=== PATIENT | female | born 1975 | race Caucasian/White ===

== ENCOUNTER 2016-10-04 23:47 | Inpatient (IN) | payer BC, OTHER, SELFPAY ==
[~2016-10-04] VITALS: Ht 165.1 cm; Wt 102.6 kg
[~2016-10-04 23:47] MED LIST: ALBU17IN INH; ALBUTEROL INH; ALLE25CA OR; BACL10TA2 OR; CLON0.5T OR; IMIT6INJ AD; LIDO5DIS EX; NASONEX; NEUR100C OR; NUCY100T6 PO; PERC5TAB8 PO; ROBA500T OR; SKEL800T5 OR; TRAZ50TA OR; TRAZ50TA2 PO; TYLENOL #3 OR; VICO5TAB OR; XANA1TAB2 OR; XANA1TAB2 PO
[2016-10-04] MEDS ORDERED: NALOXONE INJ 2 MG/2 ML SYRINGE (J2310) As Ordered ONE (23:56)
[2016-10-05 00:40] LABS: MEAN CORPUSCULAR HEMOGLOBIN 30.1 pg (27.0-33.0); MEAN CORPUSCULAR HGB CONC 33.3 g/dl (32.0-36.5); MEAN CORPUSCULAR VOLUME 90.4 fl (80.0-96.0); WHITE BLOOD COUNT 7.8 K/mm3 (4.0-10.0)
[2016-10-05 00:50] LABS: AMPHETAMINES LEVEL URINE NEGATIVE (NEGATIVE); BENZODIAZEPINES URINE POSITIVE (NEGATIVE); COCAINE METABOLITE URINE NEGATIVE (NEGATIVE); CONTROL LINE INT CTR LINE PRESENT; METHADONE URINE NEGATIVE (NEGATIVE); OPIATES URINE NEGATIVE (NEGATIVE); TRICYCLIC ANTIDEPRESS URINE POSITIVE (NEGATIVE)
[2016-10-05 01:02] LABS: ALBUMIN 3.5 GM/DL (3.2-5.2); ALBUMIN/GLOBULIN RATIO 1.06 (1.00-1.93); ALKALINE PHOSPHATASE 105 U/L (45-117); ALT/SGPT 210 U/L (12-78); ANION GAP 8 MEQ/L (8-16); AST/SGOT 92 U/L (15-37); BILIRUBIN,DIRECT 0.1 MG/DL (0.0-0.2); BILIRUBIN,TOTAL 0.3 MG/DL (0.2-1.0); BLOOD UREA NITROGEN 19 MG/DL (7-18); CALCIUM LEVEL 8.8 MG/DL (8.5-10.1); CARBON DIOXIDE LEVEL 28 MEQ/L (21-32); CHLORIDE LEVEL 105 MEQ/L (98-107); CREATININE FOR GFR 0.92 MG/DL (0.55-1.02); GLOMERULAR FILTRATION RATE > 60.0 (>58); GLUCOSE, FASTING 113 MG/DL (70-105); POTASSIUM SERUM 4.1 MEQ/L (3.5-5.1); SODIUM LEVEL 141 MEQ/L (136-145); TOTAL PROTEIN 6.8 GM/DL (6.4-8.2)
--- NOTE | 2016-10-05 01:30 | REPUSA ---
CLINICAL HISTORY: Altered level of consciousness. TECHNIQUE: Multiple axial brain CT scan sections were obtained from base to vertex without contrast a dministration. COMMENTS: The study shows normal configuration of sella turcica. There are no intra or extra-axial collections. There is no mass effect or midline shift. There is no evidence of hematoma formation. No hydrocephal us is present. No abnormal calcifications are noted. No significant abnormalities are seen either in the posterior fossa or supratentorial compartment. The sinuses and mastoid air cells are patent. IMPRESSION: No evidence of acute intracranial pathology. Thank you for your kind referral of this patient.
[2016-10-05 01:46] LABS: ABG BASE EXCESS 0.5 (-2.0-2.0); ABG DEVICE NASAL CANN; ABG HCO3 25.9 MEQ/L (22.0-26.0); ABG PARTIAL PRESSURE CO2 44.4 mmHg (35.0-45.0); ABG PARTIAL PRESSURE O2 144.7 mmHg (75.0-100.0); ABG TOTAL CO2 27.2 MEQ/L (22.0-29.0); ABG pH (ARTERIAL) 7.383 UNITS (7.350-7.450)
[2016-10-05 01:54] LABS: T UPTAKE 28 % (30-39); THYROXINE (T4) 10.1 UG/DL (4.5-12.0)
[2016-10-05] MEDS ORDERED: METOCLOPRAMIDE INJ 10MG/2ML VIAL (J2765) IV PRN (03:00)
[2016-10-05 05:30] VITALS: BP 122/57
[2016-10-05 07:39] LABS: BASO # 0.2 K/mm3 (0.0-0.2); BASO % 2.6 % (0.0-1.0); EOS # 0.3 K/mm3 (0.0-0.50); EOS % 3.2 % (0.0-3.0); LARGE UNSTAINED CELL # 0.1 K/mm3 (0.0-0.4); LARGE UNSTAINED CELL % 1.5 % (0.0-4.0); LYMPH # 1.5 K/mm3 (1.5-4.5); LYMPH % 15.8 % (24.0-44.0); MEAN CORPUSCULAR HEMOGLOBIN 29.6 pg (27.0-33.0); MEAN CORPUSCULAR HGB CONC 32.3 g/dl (32.0-36.5); MEAN CORPUSCULAR VOLUME 91.7 fl (80.0-96.0); MONO # 0.3 K/mm3 (0.0-0.8); MONO % 3.7 % (0.0-5.0); NEUTROPHILS # 6.2 K/mm3 (1.8-7.7); NEUTROPHILS % 73.1 % (36.0-66.0); PLATELET COUNT, AUTOMATED 206 k/mm3 (150-450); WHITE BLOOD COUNT 8.5 K/mm3 (4.0-10.0)
[2016-10-05 08:00] VITALS: BP 94/53
[2016-10-05 08:00] LABS: ALBUMIN 3.3 GM/DL (3.2-5.2); ALBUMIN/GLOBULIN RATIO 0.92 (1.00-1.93); ALKALINE PHOSPHATASE 101 U/L (45-117); ALT/SGPT 203 U/L (12-78); ANION GAP 7 MEQ/L (8-16); AST/SGOT 83 U/L (15-37); BILIRUBIN,TOTAL 0.3 MG/DL (0.2-1.0); BLOOD UREA NITROGEN 17 MG/DL (7-18); CALCIUM LEVEL 8.9 MG/DL (8.5-10.1); CARBON DIOXIDE LEVEL 28 MEQ/L (21-32); CHLORIDE LEVEL 110 MEQ/L (98-107); CREATININE FOR GFR 0.83 MG/DL (0.55-1.02); GLOMERULAR FILTRATION RATE > 60.0 (>58); GLUCOSE, FASTING 111 MG/DL (70-105); POTASSIUM SERUM 4.4 MEQ/L (3.5-5.1); SODIUM LEVEL 145 MEQ/L (136-145); TOTAL PROTEIN 6.9 GM/DL (6.4-8.2)
[2016-10-05 08:41] LABS: VENOUS BASE EXCESS 1.6 (-2.0-2.0); VENOUS O2 SATURATION 94.4 % (60.0-80.0); VENOUS PARTIAL PRESSURE O2 68.9 mmHg (30.0-50.0); VENOUS STANDARD HCO3 25.8 MEQ/L; VENOUS TOTAL CO2 29.3 MEQ/L (24.0-28.0)
[2016-10-05] MEDS ORDERED: PANTOPRAZOLE 40MG INJ (PROTONIX) (C9113) As Ordered ONE (09:09)
[2016-10-05] MEDS ORDERED: ENOXAPARIN 40 MG/0.4 ML SYRINGE (J1650) As Ordered ONE (09:11)
[2016-10-05] MEDS: PANTOPRAZOLE 40MG INJ (PROTONIX) (C9113) IV SCH (09:17)
[2016-10-05] MEDS: ENOXAPARIN 40 MG/0.4 ML SYRINGE (J1650) SC SCH (09:17)
[2016-10-05] MEDS: NS 1,000 ML IV SCH ×2 (09:17→16:57)
[2016-10-05] MEDS ORDERED: METO25TAB PO (09:51)
[2016-10-05] MEDS ORDERED: ALPR2TAB3 PO (09:51)
[2016-10-05] MEDS ORDERED: OLAN5TAB PO (09:51)
--- NOTE | 2016-10-05 10:06 | HPE ---
DATE OF ADMISSION: 10/05/2016 PRIMARY CARE PROVIDER: Dr. Allison Murphy CHIEF COMPLAINT: Altered mental status. PAST MEDICAL HISTORY: Anxiety disorder. Chronic neck pain. Chronic low back pain. Hypertension. HISTORY OF THE PRESENT ILLNESS: This is a 40-year-old female with a history of substance abuse, who [facility] when people at the center heard a thump and went to investigate and found the patient on the floor with altered mental status, responsive to verbal stimuli but very confused. Emergency medical services (EMS) was called and the fire department called. 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 EMS gave the patient Narcan 4 mg with small response. The patient remained lethargic and confused, so the patient was brought to the emergency room. In the emergency department (ED), she had a CT scan of the head done which did not show any acute intracranial events. However, the patient received additional dose of Narcan 4 mg in the ED without any response. The patient continued to be very lethargic, difficult to arouse, so the hospitalist service was consulted for admission for drug overdose and altered mental status. PAST SURGICAL HISTORY: As obtained from chart review: section. Tendon repair. Left hand small finger surgery. Tubal ligation. Neck surgery in 2008. ALLERGIES: SULFA DRUGS and IBUPROFEN. HOME MEDICATIONS: - Fentanyl patch - Vicodin - Xanax 2 mg one tablet three times per day SOCIAL HISTORY: The patient is a smoker, uses street drugs. Denies use of alcohol. FAMILY HISTORY: Could not be obtained. The patient has a history of opiate abuse, cocaine use. REVIEW OF SYSTEMS: No further review of systems could be obtained as the patient is too lethargic to give any history. PHYSICAL EXAMINATION: VITAL SIGNS: Pulse 77, respiratory rate 16, blood pressure 106/55, pulse oximetry 99% with 2 liters nasal cannula. GENERAL: The patient is lethargic. When spoken to, only makes noises, does move around spontaneously and trying to open eyes when spoken to. HEENT: Normocephalic, atraumatic. Moist mucous membranes. Anicteric eyes. CHEST: Clear to auscultation. CARDIOVASCULAR: S1, S2 regular. No rub, murmur or gallop. ABDOMEN: Soft, nontender. Bowel sounds present. EXTREMITIES: No edema. There is bruising over the right knee. LABORATORY DATA: WBC 7.8, hemoglobin 12.7, platelets 227. Sodium 141, potassium 4.1, chloride 95, bicarbonate 28, BUN 19, creatinine 0.9, glucose 113, AST 92, ALT 210, ammonia 67, TSH 5.8. Urine toxicology positive for tricyclic antidepressants and for benzodiazepines. Alcohol level is negative. Tylenol level less than 2. Salicylates 1.8. CT head: No acute intracranial abnormalities. ASSESSMENT AND PLAN: This is a 40-year-old female admitted for toxic encephalopathy due to drug overdose, including benzodiazepine and tricyclic antidepressants, and possibly other street drugs. Plan: For toxic encephalopathy, the patient is maintaining airway at this point. It seems like the patient is waking up slowly. Will monitor the patient in telemetry. Encephalopathy is probably related to benzodiazepine and tricyclic overdose. Drug overdose. Unknown whether it is accidental or intentional. Once the patient is more awake, will have to clarify whether it was a suicidal attempt or not. Polysubstance abuse. The patient has a history of use of street drugs, including methadone, morphine, as well as cocaine and benzodiazepines. The patient's urine toxicology at this time has been positive for benzodiazepine and tricyclic antidepressant. Unknown amount and duration when she had taken it, so flumazenil was not given as well as the patient already waking up and starting to respond. Deep vein thrombosis (DVT) prophylaxis has been ordered. Gastrointestinal (GI) prophylaxis has been ordered. History of chronic neck pain and back pain. Will hold off any pain medications at present until the patient is fully awake. Anxiety disorder. Will hold benzodiazepines until the patient is awake.
[2016-10-05 12:00] VITALS: BP 115/57
[2016-10-05 16:00] VITALS: BP 114/67
[2016-10-05 20:00] VITALS: BP 114/55
[2016-10-06] VITALS: BP 116/70
[2016-10-06] MEDS: NS 1,000 ML IV SCH ×3 (01:05→16:47)
[2016-10-06] MEDS ORDERED: IBUPROFEN 400 MG TAB PO ONE (03:30)
[2016-10-06] MEDS ORDERED: IBUPROFEN 400 MG TAB As Ordered ONE (03:59)
[2016-10-06 04:00] VITALS: BP 108/61
[2016-10-06 06:55] LABS: BASO % 0.7 % (0.0-1.0); EOS # 0.3 K/mm3 (0.0-0.50); EOS % 4.3 % (0.0-3.0); LARGE UNSTAINED CELL # 0.1 K/mm3 (0.0-0.4); LARGE UNSTAINED CELL % 1.9 % (0.0-4.0); LYMPH # 1.7 K/mm3 (1.5-4.5); LYMPH % 26.2 % (24.0-44.0); MEAN CORPUSCULAR HEMOGLOBIN 30.2 pg (27.0-33.0); MEAN CORPUSCULAR HGB CONC 32.4 g/dl (32.0-36.5); MEAN CORPUSCULAR VOLUME 93.2 fl (80.0-96.0); MONO # 0.3 K/mm3 (0.0-0.8); MONO % 4.2 % (0.0-5.0); NEUTROPHILS # 4.1 K/mm3 (1.8-7.7); NEUTROPHILS % 62.6 % (36.0-66.0); PLATELET COUNT, AUTOMATED 207 k/mm3 (150-450); RED CELL DISTRIBUTION WIDTH 13.1 % (11.5-14.5); WHITE BLOOD COUNT 6.6 K/mm3 (4.0-10.0)
[2016-10-06 07:13] LABS: ANION GAP 8 MEQ/L (8-16); BLOOD UREA NITROGEN 14 MG/DL (7-18); CALCIUM LEVEL 8.3 MG/DL (8.5-10.1); CARBON DIOXIDE LEVEL 27 MEQ/L (21-32); CHLORIDE LEVEL 108 MEQ/L (98-107); GLOMERULAR FILTRATION RATE > 60.0 (>58); GLUCOSE, FASTING 94 MG/DL (70-105); POTASSIUM SERUM 4.3 MEQ/L (3.5-5.1); SODIUM LEVEL 143 MEQ/L (136-145)
--- NOTE | 2016-10-06 07:21 | ECGEPIP ---
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
[2016-10-06 08:00] VITALS: BP 112/58
[2016-10-06] MEDS: ENOXAPARIN 40 MG/0.4 ML SYRINGE (J1650) SC SCH (09:00)
[2016-10-06] MEDS ORDERED: PANTOPRAZOLE 40MG INJ (PROTONIX) (C9113) As Ordered ONE (09:18)
[2016-10-06] MEDS ORDERED: ENOXAPARIN 40 MG/0.4 ML SYRINGE (J1650) As Ordered ONE (09:18)
[2016-10-06] MEDS: PANTOPRAZOLE 40MG INJ (PROTONIX) (C9113) IV SCH (09:25)
[2016-10-06] MEDS ORDERED: hydrOXYzine 25 MG TAB PO PRN (10:30)
[2016-10-06 12:00] VITALS: BP_SYST 114; BP_SYST 118; BP_SYST 128; BP_DIAS 64; BP_DIAS 65; BP_DIAS 72
--- NOTE | 2016-10-06 14:17 | ECGEPIP ---
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
--- NOTE | 2016-10-06 14:42 | IPNPDOC ---
Text Note Date of Service The patient was seen on 10/06/16 at 14:29. NOTE Subjective: Patient states she did not overdose on benzos. The nurse called the facility from where she came, and they noted that 40 tablets of alprazolam are missing from the 90 tablets that were filled on 09/30/2016. This information was relayed to Dr. López, who recommends that the patient is cleared from a psychiatric standpoint to be discharged. Objective: Vitals: (see below) General: No acute distress, laying comfortably in bed. HEENT: Moist mucous membranes. Non-traumatic. Neck: No JVD or lymphadenopathy Cardiac: RRR, No murmurs Pulm: Clear to auscultation b/l. No wheezing, rhonchi Abd: NT/ND + BS Ext: No edema or cyanosis Not suicidal or homicidal. Labs (see below) Images: CT head negative for acute pathology. Assessment/Plan 1. Altered mental status likely secondary to benzodiazepines. The patient denies taking any extra alprazolam been prescribed however when the nurse called the facility from where she came, they noted that 40 pills of alprazolam have been missing from the bottle since Sep 30, 2016. This has been relayed to Dr. López. Dr. López believes that the patient is nonsuicidal at this time and can be discharged. She also recommended not continuing the Xanax that the patient has been on, and restarting her SSRI. 2. Polysubstance abuse- history of street drug use, methadone, morphine, cocaine , benzodiazepines. Urine tox was positive benzos and tricyclic antidepressants. I have called [facility]'s pharmacy, and they confirm the alprazolam 2mg TID was prescribed by Dr. Cohn, and the patient recently filled the prescription of 90 tablets on 09/30/2016. The patient states she occasionally takes a tricyclic antidepressant to help her sleep. She states that she gets some of her medications from [facility], which is close today. I will try to contact him tomorrow. 3. Anxiety- continue SSRI; hold alprazolam DVT prophy: Enoxaparin Plan to discharge in the next 24 hours. VS,Fishbone, I+O VS, Fishbone, I+O Laboratory Tests 10/06/16 06:35 Calcium Level 8.3 L, Red Blood Count 4.15, Mean Corpuscular Volume 93.2, Mean Corpuscular Hemoglobin 30.2, Mean Corpuscular Hemoglobin Concent 32.4, Red Cell Distribution Width 13.1, Neutrophils (%) (Auto) 62.6, Lymphocytes (%) (Auto) 26.2, Monocytes (%) (Auto) 4.2, Eosinophils (%) (Auto) 4.3 H, Basophils (%) ( Auto) 0.7, Neutrophils # (Auto) 4.1, Lymphocytes # (Auto) 1.7, Monocytes # (Auto ) 0.3, Eosinophils # (Auto) 0.3, Basophils # (Auto) 0.0 Vital Signs Date Time Temp Pulse Resp B/P Pulse Ox O2 Delivery O2 Flow Rate FiO2 10/06/16 12:00 98.7 86 18 96 Room Air 10/06/16 12:00 114/64 118/65 128/72 10/05/16 05:30 2.0 I&O- Last 24 Hours up to 6 AM 10/06/16 06:00 Intake Total 720 ml Output Total 3050 ml Balance -2330 ml LENNIE ORR MD Oct 06, 2016 14:42
[2016-10-06] MEDS: PARoxetine 20 MG TAB PO SCH (15:55)
--- NOTE | 2016-10-06 16:16 | EDDOCDS ---
Nurse's Notes [facility] Name: Homero Kline Age: 40 yrs Sex: Female : 1975 Arrival Date: 10/04/2016 Time: 23:47 Bed Admit Hold Private MD: Antione Murphy Diagnosis: Other psychoactive substance abuse with intoxication Presentation: 10/04 23:52 Presenting complaint: EMS states: People at [facility] heard a thump and went to investigate [facility] and found patient on floor attempting to sit up. Last known well at 1999 when she went to get her meds. EMS found her still on floor altered, responsive to verbal. [facility] fire saw tampons, two loaded syringes an empty syringe, a dance hall hostess and a spoon on the bed. EMS gave narcan 4mg IV with small response. Pupils constricted. Adult Sepsis Screening: Patient has new or worsening altered mentation (1 point). Patient's respiratory rate is less than 22. Systolic blood pressure is greater than 100. Patient has a qSOFA score of 0- Negative Sepsis Screen. Suicide/Homicide risk assessment- Unable to assess, the patient has an altered level of consciousness. 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 Transition of care: patient was not received from another setting of care. 23:52 Acuity: YVONNE Level 2 [facility] 23:52 Method Of Arrival: Ambulance [facility] Triage Assessment: 23:57 General: Appears. [facility] 10/05 00:00 General: Appears obtunded. Behavior is uncooperative. Pain: Unable to use pain scale. [facility] Patient is unresponsive. Pt Declines HIV testing. Neurological: Level of Consciousness is obtunded, Pupils are PERRLA. Cardiovascular: Rhythm is sinus tachycardia No ectopy. Respiratory: Airway is patent Respiratory effort is shallow, Respiratory pattern is regular. GI: Abdomen is obese. Derm: Skin is intact, Skin is dry, Skin is pink, warm & dry. Skin temperature is. Injury Description: No known injury. Historical: - Allergies: Ibuprofen; SULFA (SULFONAMIDES); - Home Meds: 1. fentanyl patches Unknown 2. Vicodin 5-300 mg Oral tab 1 tab twice a day for Pain 3. Xanax 2 mg Oral tab 1 tab 3 times per day for Anxiety - PMHx: Anxiety; Chronic Neck Pain; Hypertension; - PSHx: Unable to obtain; - Social history: Smoking status: unknown if patient ever smoked tobacco. patient unresponsive. - : Unable to assess if pt is on anticoagulants. Unable to Verify Home Med List with the patient / caregiver. - Exposure Risk Screening:: Unable to Assess. Assessment: 00:08 General: See triage note.. kas2 00:29 General: Behavior is agitated, drowsy, restless, uncooperative. Pain: Unable to use kas2 pain scale. Patient is disoriented. Neurological: Level of Consciousness is lethargic, Oriented to person. Cardiovascular: Capillary refill < 3 seconds Heart tones S1 S2 present Rhythm is sinus tachycardia No ectopy. Respiratory: Airway is patent Respiratory effort is even, unlabored, Respiratory pattern is regular, symmetrical, Breath sounds are clear bilaterally. 01:00 General: Patient gone to CT scan via stretcher with tech.. kas2 01:18 General: Patient back from CT scan via stretcher with tech. Resettled in bed. No kas2 apparent distress. Patient responds to painful stimuli. Appears comfortable. Will continue to monitor at this time.. 02:10 General: Patient sleeping at this time. No apparent distress noted. Appears kas2 comfortable. VSS. Call macdonald within reach. Will continue to monitor.. 03:22 General: Appears in no apparent distress, comfortable, well nourished, well groomed, to kas2 be sleeping. Behavior is drowsy. Pain: Unable to use pain scale. Patient is disoriented. Neurological: Level of Consciousness is lethargic, Oriented to person. Cardiovascular: Capillary refill < 3 seconds Heart tones S1 S2 present Rhythm is sinus tachycardia No ectopy. Respiratory: Airway is patent Respiratory effort is even, unlabored, Respiratory pattern is regular, symmetrical, Breath sounds are clear bilaterally. Derm: Skin is intact, is healthy with good turgor, Skin is dry, Skin is pink, warm & dry. Skin temperature is warm. 04:35 General: Patient sleeping at this time with no apparent distress noted. Appears kas2 comfortable. Responds to name only. Garbled speech. VSS. Airway patent. Respiratory pattern even and unlabored. Will continue to monitor.. 05:16 General: Verbal report given to Mitali Carranza RN. . kas2 07:08 Cardiovascular: Rhythm is sinus rhythm No ectopy. pt care by admission nurse Milo Delaney. pml Vital Signs: 10/04 23:54 BP 119 / 65 (auto/); kas2 23:56 Pulse 113 MON; Pulse Ox 94% ; 10/05 00:00 BP 119 / 65; Pulse 116; Resp 18; Pulse Ox 100% on Non-rebreather mask; Weight 101.83 kas2 kg; Height 5 ft. 5 in. (165.10 cm); 00:00 BP 123 / 71 (auto/); kas2 00:00 Pulse 108 MON; Pulse Ox 90% ; kas2 00:15 BP 122 / 57 (auto/); kas2 00:15 Pulse 106 MON; Pulse Ox 98% ; kas2 00:30 BP 113 / 54 (auto/); kas2 00:30 Pulse 106 MON; kas2 00:36 BP 121 / 64 (auto/); kas2 00:36 Pulse 108 MON; Pulse Ox 99% ; kas2 00:45 BP 109 / 55 (auto/); kas2 00:45 Pulse 102 MON; Pulse Ox 98% ; kas2 00:51 Pulse 101 MON; Pulse Ox 98% ; kas2 01:00 BP 128 / 60 (auto/); kas2 01:15 BP 105 / 57 (auto/); kas2 01:15 Pulse 94 MON; Pulse Ox 99% ; kas2 01:30 BP 106 / 56 (auto/); kas2 01:30 Pulse 89 MON; Pulse Ox 98% ; kas2 01:42 BP 108 / 64 (auto/); kas2 01:42 Pulse 85 MON; Pulse Ox 100% ; kas2 01:45 BP 113 / 63 (auto/); kas2 01:45 Pulse 87 MON; Pulse Ox 99% ; kas2 02:00 BP 110 / 59 (auto/); kas2 02:00 Pulse 89 MON; Pulse Ox 99% ; kas2 02:15 BP 104 / 59 (auto/); kas2 02:15 Pulse 89 MON; Pulse Ox 98% ; kas2 02:30 BP 102 / 58 (auto/); kas2 02:30 Pulse 87 MON; Pulse Ox 99% ; kas2 02:45 BP 102 / 55 (auto/); kas2 02:45 Pulse 85 MON; Pulse Ox 99% ; kas2 03:00 BP 101 / 58 (auto/); kas2 03:00 Pulse 86 MON; Pulse Ox 99% ; kas2 03:15 BP 106 / 55 (auto/); kas2 03:15 Pulse 85 MON; Pulse Ox 99% ; kas2 03:26 Resp 18; Temp 98.2(O); kas2 03:30 BP 116 / 64 (auto/); kas2 03:30 Pulse 83 MON; Pulse Ox 99% ; kas2 03:30 Resp 18; Temp 97.6(O); Pulse Ox 99% ; kas2 03:45 BP 116 / 51 (auto/); kas2 03:45 Pulse 80 MON; Pulse Ox 100% ; kas2 04:00 BP 117 / 60 (auto/); kas2 04:00 Pulse 86 MON; Pulse Ox 100% ; kas2 04:15 BP 112 / 55 (auto/); kas2 04:15 Pulse 88 MON; Pulse Ox 99% ; kas2 04:30 BP 128 / 63 (auto/); kas2 04:30 Pulse 89 MON; Pulse Ox 99% ; kas2 04:30 Resp 20; Temp 98.0(O); kas2 04:45 BP 106 / 56 (auto/); kas2 04:45 Pulse 83 MON; Pulse Ox 100% ; kas2 05:00 BP 103 / 63 (auto/); kas2 05:00 Pulse 85 MON; Pulse Ox 99% ; [facility] 05:15 BP 122 / 57 (auto/); [facility] 05:15 Pulse 85 MON; Pulse Ox 99% ; [facility] 10/06 16:03 BP 114 / 64; Pulse 86; Resp 18; Temp 98.7(O); Pulse Ox 96% on R/A; dy 10/05 00:00 Body Mass Index 37.36 (101.83 kg, 165.10 cm) [facility] Vitals: 10/05 00:00 Log In Time N/A - ambulance arrival. [facility] ED Course: 10/04 23:48 Patient visited by Brooklynn Barlow PCA. tmm1 23:48 Antione Murphy is Private Physician. tmm1 23:48 Patient moved to Waiting tmm1 23:49 Kenn Stroud, RN is Primary Nurse. tmm1 23:49 Mitali Perez,CHANTEL is Primary Nurse. tmm1 23:49 Barbie Hart DO is Attending Physician. cs11 23:49 Patient visited by Barbie Hart DO. cs11 23:49 Patient moved to 3 tmm1 23:50 O2 via non-rebreather \T\ 15L/min. kas2 23:50 O2 via nasal cannula \T\ 6L/min. kas2 23:56 Triage Initiated kas2 10/05 00:05 Patient visited by Genet Ennis RN. af2 00:09 Patient visited by Mitali Perez RN. kas2 00:27 monitor and storage bin tender on. Pulse ox on. NIBP on. kas2 00:27 Inserted saline lock: 20 gauge in right antecubital area and blood collected. The kas2 patient tolerated the procedure well. No procedures done that require assistance. 00:28 Bernardo cath inserted 16 Fr. Balloon inflated. To gravity drainage. Urine specimen kas2 collected. returned clear yellow urine. Bernardo cath flushed w/ 10 cc NS Patient tolerated well. 00:29 Salicylate Level Sent. kas2 00:29 Liver Profile Sent. kas2 00:29 Ethyl Alcohol (ethanol) Sent. kas2 00:29 Drug Eval Toxicology ED Only Sent. kas2 00:29 Acetaminophen Level Sent. kas2 00:29 Basic Metabolic Profile Sent. kas2 00:29 Complete Blood Count Sent. kas2 00:30 Patient visited by Mitali Perez RN. kas2 00:40 EKG done. (by ED staff). Reviewed by Barbie Hart DO. jlm 00:41 Patient visited by Anastasia Hatfield, Sole Leather Cutting Machine Operator. jlm 00:51 Patient visited by Mitali Perez RN. kas2 01:39 Ammonia (Little Green Tube on Ice, Not Pea Green) Sent. kas2 01:42 -Arterial Blood Gas Sent. jc3 01:42 CT Head Without Contrast Returned. EDMS 01:55 Patient visited by Mitali Perez RN. kas2 02:25 Primary Nurse role handed off by Kenn Stroud RN kmg1 02:30 Jaqueline Chiu is Hospitalizing Provider. cs11 02:31 Patient visited by Mitali Perez RN. kas2 03:26 Patient visited by Mitali Perez RN. kas2 03:30 [facility] Payment Agreement was scanned into [employer] and attached to record. pm4 04:18 Patient visited by Mitali Perez RN. kas2 04:31 Patient moved to Admit Hold tmm1 05:17 Patient visited by Mitali Perez RN. kas2 07:08 Patient visited by Dianelys Griffin RN. pml 07:09 Primary Nurse role handed off by Mitali Perez RN deg 07:48 T-Sheet-- Draft Copy was scanned into [employer] and attached to record. seh 09:25 Patient moved to 20 deg 15:06 Patient moved to Admit Hold dy 10/06 07:25 EKG-ADULT Returned. EDMS 14:25 ELECTROCARDIOGRAM ADULT Returned. EDMS Administered Medications: 10/04 23:57 Drug: naloxone 4 mg [naloxone 1 mg/mL injection syringe (4 mL)] Route: IVP; Site: right kas2 wrist; RT: 10/05 01:42 ABG's drawn from right radial artery pressure held for 5 minutes no bleeding noted jc3 pressure bandage applied specimen sent pt. tolerated well. Order Results: Lab Order: Fingerstick Blood Sugar; SPEC'M 10/05/16 00:01 Test: BEDSIDE GLUCOSE; Value: 108; Range: 70-105; Abnormal: Above high normal; Units: MG/DL; Status: F Lab Order: Acetaminophen Level; SPEC'M 10/05/16 00:18 Test: ACETAMINOPHEN LEVEL; Value: < 2.0; Range: 10.0-30.0; Abnormal: Below low normal; Units: UG/ML; Status: F Lab Order: Basic Metabolic Profile; SPEC'M 10/05/16 00:18 Test: GLUCOSE, FASTING; Value: 113; Range: 70-105; Abnormal: Above high normal; Units: MG/DL; Status: F Test: BLOOD UREA NITROGEN; Value: 19; Range: 7-18; Abnormal: Above high normal; Units: MG/DL; Status: F Test: CREATININE FOR GFR; Value: 0.92; Range: 0.55-1.02; Units: MG/DL; Status: F Test: GLOMERULAR FILTRATION RATE; Value: > 60.0; Range: >58; Status: F Test: SODIUM LEVEL; Value: 141; Range: 136-145; Units: MEQ/L; Status: F Test: POTASSIUM SERUM; Value: 4.1; Range: 3.5-5.1; Units: MEQ/L; Status: F Test: CHLORIDE LEVEL; Value: 105; Range: 98-107; Units: MEQ/L; Status: F Test: CARBON DIOXIDE LEVEL; Value: 28; Range: 21-32; Units: MEQ/L; Status: F Test: ANION GAP; Value: 8; Range: 8-16; Units: MEQ/L; Status: F Test: CALCIUM LEVEL; Value: 8.8; Range: 8.5-10.1; Units: MG/DL; Status: F Test Note: ; Units are mL/min/1.73 m2 Chronic Kidney Disease Staging per NKF: Stage I & II GFR >=60 Normal to Mildly Decreased Stage III GFR 30-59 Moderately Decreased Stage IV GFR 15-29 Severely Decreased Stage V GFR <15 Very Little GFR Left ESRD GFR <15 on KENO ATTENDANT Lab Order: Complete Blood Count; SPEC'M 10/05/16 00:18 Test: WHITE BLOOD COUNT; Value: 7.8; Range: 4.0-10.0; Units: K/mm3; Status: F Test: RED BLOOD COUNT; Value: 4.22; Range: 4.00-5.40; Units: M/mm3; Status: F Test: HEMOGLOBIN; Value: 12.7; Range: 12.0-16.0; Units: g/dl; Status: F Test: HEMATOCRIT; Value: 38.2; Range: 36.0-47.0; Units: %; Status: F Test: MEAN CORPUSCULAR VOLUME; Value: 90.4; Range: 80.0-96.0; Units: fl; Status: F Test: MEAN CORPUSCULAR HEMOGLOBIN; Value: 30.1; Range: 27.0-33.0; Units: pg; Status: F Test: MEAN CORPUSCULAR HGB CONC; Value: 33.3; Range: 32.0-36.5; Units: g/dl; Status: F Test: RED CELL DISTRIBUTION WIDTH; Value: 14.0; Range: 11.5-14.5; Units: %; Status: F Test: PLATELET COUNT, AUTOMATED; Value: 227; Range: 150-450; Units: k/mm3; Status: F Lab Order: Drug Eval Toxicology ED Only; SPEC'M 10/05/16 00:18 Test: AMPHETAMINES LEVEL URINE; Value: NEGATIVE; Range: NEGATIVE; Status: F Test: BARBITURATES URINE; Value: NEGATIVE; Range: NEGATIVE; Status: F Test: BENZODIAZEPINES URINE; Value: POSITIVE; Range: NEGATIVE; Abnormal: Above high normal; Status: F Test: CANNABINOIDS URINE; Value: NEGATIVE; Range: NEGATIVE; Status: F Test: COCAINE METABOLITE URINE; Value: NEGATIVE; Range: NEGATIVE; Status: F Test: METHADONE URINE; Value: NEGATIVE; Range: NEGATIVE; Status: F Test: OPIATES URINE; Value: NEGATIVE; Range: NEGATIVE; Status: F Test: TRICYCLIC ANTIDEPRESS URINE; Value: POSITIVE; Range: NEGATIVE; Abnormal: Above high normal; Status: F Test Note: ; ALL PRESUMPTIVE POSITIVE FINDINGS ARE UNCONFIRMED NORMAL VALUES THRESHOLD IN NG/ML AMPHETAMINES 1000 METHAMPHETAMINES 1000 BARBITURATES 300 BENZODIAZEPINES 300 CANNABINOIDS (THC) 50 COCAINE METABOLITE 300 METHADONE 300 OPIATES 300 PHENCYCLIDINE 25 TRICYCLIC ANTIDEPRESSANTS 1000 RESULTS ARE FOR MEDICAL PURPOSES ONLY. ALL URINE SPECIMENS WILL BE SAVED FOR 3 DAYS. IF CONFIRMATION OF A PRESUMPTIVE POSTIVE SCREEN RESULT IS DESIRED, CALL CHEMISTRY ([phone]) AND REQUEST URINE TO BE SENT TO REFERENCE LAB. FOR A LIST OF CLOSELY RELATED COMPOUNDS PLEASE CALL THE LAB. Lab Order: Ethyl Alcohol (ethanol); SPEC'M 10/05/16 00:18 Test: ETHYL ALCOHOL (ETHANOL); Value: 0.003; Range: 0.000-0.010; Units: %; Status: F Lab Order: Liver Profile; SPEC'M 10/05/16 00:18 Test: AST/SGOT; Value: 92; Range: 15-37; Abnormal: Above high normal; Units: U/L; Status: F Test: ALT/SGPT; Value: 210; Range: 12-78; Abnormal: Above high normal; Units: U/L; Status: F Test: ALKALINE PHOSPHATASE; Value: 105; Range: 45-117; Units: U/L; Status: F Test: BILIRUBIN,TOTAL; Value: 0.3; Range: 0.2-1.0; Units: MG/DL; Status: F Test: BILIRUBIN,DIRECT; Value: 0.1; Range: 0.0-0.2; Units: MG/DL; Status: F Test: TOTAL PROTEIN; Value: 6.8; Range: 6.4-8.2; Units: GM/DL; Status: F Test: ALBUMIN; Value: 3.5; Range: 3.2-5.2; Units: GM/DL; Status: F Test: ALBUMIN/GLOBULIN RATIO; Value: 1.06; Range: 1.00-1.93; Status: F Lab Order: Salicylate Level; SPEC10/05/16 00:18 Test: SALICYLATE LEVEL; Value: 1.8; Range: 5.0-30.0; Abnormal: Below low normal; Units: MG/DL; Status: F Lab Order: -Arterial Blood Gas; 10/05/16 01:41 Test: ABG pH (ARTERIAL); Value: 7.383; Range: 7.350-7.450; Units: UNITS; Status: F Test: ABG PARTIAL PRESSURE CO2; Value: 44.4; Range: 35.0-45.0; Units: mmHg; Status: F Test: ABG PARTIAL PRESSURE O2; Value: 144.7; Range: 75.0-100.0; Abnormal: Above high normal; Units: mmHg; Status: F Test: ABG TOTAL CO2; Value: 27.2; Range: 22.0-29.0; Units: MEQ/L; Status: F Test: ABG HCO3; Value: 25.9; Range: 22.0-26.0; Units: MEQ/L; Status: F Test: ABG BASE EXCESS; Value: 0.5; Range: -2.0-2.0; Status: F Test: ABG STANDARD HCO3; Value: 25.0; Range: 22.0-26.0; Units: MEQ/L; Status: F Test: ABG O2 SATURATION; Value: 99.2; Range: 95.0-99.0; Abnormal: Above high normal; Units: %; Status: F Test: ABG DEVICE; Value: NASAL PORFIRIO; Status: F Lab Order: Ammonia ([place] Tube on Ice, Not Pea Green); 10/05/16 01:37 Test: AMMONIA; Value: 67; Range: <32; Abnormal: Above high normal; Units: uMOL/L; Status: F Lab Order: THYROID PROFILE; 10/05/16 00:18 Test: T UPTAKE; Value: 28; Range: 30-39; Abnormal: Below low normal; Units: %; Status: F Test: THYROXINE (T4); Value: 10.1; Range: 4.5-12.0; Units: UG/DL; Status: F Test: FREE THYROXINE INDEX; Value: 2.8; Range: 1.3-4.8; Units: %; Status: F Test: THYROID STIMULATING HORMONE; Value: 5.870; Range: 0.358-3.740; Abnormal: Above high normal; Units: uIU/ML; Status: F Lab Order: COMPLETE COMPHRENSIVE METABOLI; SPEC'M 10/05/16 07:21 Test: GLUCOSE, FASTING; Value: 111; Range: 70-105; Abnormal: Above high normal; Units: MG/DL; Status: F Test: BLOOD UREA NITROGEN; Value: 17; Range: 7-18; Units: MG/DL; Status: F Test: CREATININE FOR GFR; Value: 0.83; Range: 0.55-1.02; Units: MG/DL; Status: F Test: GLOMERULAR FILTRATION RATE; Value: > 60.0; Range: >58; Status: F Test: SODIUM LEVEL; Value: 145; Range: 136-145; Units: MEQ/L; Status: F Test: POTASSIUM SERUM; Value: 4.4; Range: 3.5-5.1; Units: MEQ/L; Status: F Test: CHLORIDE LEVEL; Value: 110; Range: 98-107; Abnormal: Above high normal; Units: MEQ/L; Status: F Test: CARBON DIOXIDE LEVEL; Value: 28; Range: 21-32; Units: MEQ/L; Status: F Test: ANION GAP; Value: 7; Range: 8-16; Abnormal: Below low normal; Units: MEQ/L; Status: F Test: CALCIUM LEVEL; Value: 8.9; Range: 8.5-10.1; Units: MG/DL; Status: F Test: AST/SGOT; Value: 83; Range: 15-37; Abnormal: Above high normal; Units: U/L; Status: F Test: ALT/SGPT; Value: 203; Range: 12-78; Abnormal: Above high normal; Units: U/L; Status: F Test: ALKALINE PHOSPHATASE; Value: 101; Range: 45-117; Units: U/L; Status: F Test: BILIRUBIN,TOTAL; Value: 0.3; Range: 0.2-1.0; Units: MG/DL; Status: F Test: TOTAL PROTEIN; Value: 6.9; Range: 6.4-8.2; Units: GM/DL; Status: F Test: ALBUMIN; Value: 3.3; Range: 3.2-5.2; Units: GM/DL; Status: F Test: ALBUMIN/GLOBULIN RATIO; Value: 0.92; Range: 1.00-1.93; Abnormal: Below low normal; Status: F Test Note: ; Units are mL/min/1.73 m2 Chronic Kidney Disease Staging per NKF: Stage I & II GFR >=60 Normal to Mildly Decreased Stage III GFR 30-59 Moderately Decreased Stage IV GFR 15-29 Severely Decreased Stage V GFR <15 Very Little GFR Left ESRD GFR <15 on KENO ATTENDANT Lab Order: CBC WITH DIFFERENTIAL; SPEC'M 10/05/16 07:21 Test: WHITE BLOOD COUNT; Value: 8.5; Range: 4.0-10.0; Units: K/mm3; Status: F Test: RED BLOOD COUNT; Value: 4.24; Range: 4.00-5.40; Units: M/mm3; Status: F Test: HEMOGLOBIN; Value: 12.5; Range: 12.0-16.0; Units: g/dl; Status: F Test: HEMATOCRIT; Value: 38.9; Range: 36.0-47.0; Units: %; Status: F Test: MEAN CORPUSCULAR VOLUME; Value: 91.7; Range: 80.0-96.0; Units: fl; Status: F Test: MEAN CORPUSCULAR HEMOGLOBIN; Value: 29.6; Range: 27.0-33.0; Units: pg; Status: F Test: MEAN CORPUSCULAR HGB CONC; Value: 32.3; Range: 32.0-36.5; Units: g/dl; Status: F Test: RED CELL DISTRIBUTION WIDTH; Value: 14.0; Range: 11.5-14.5; Units: %; Status: F Test: PLATELET COUNT, AUTOMATED; Value: 206; Range: 150-450; Units: k/mm3; Status: F Test: NEUTROPHILS %; Value: 73.1; Range: 36.0-66.0; Abnormal: Above high normal; Units: %; Status: F Test: LYMPH %; Value: 15.8; Range: 24.0-44.0; Abnormal: Below low normal; Units: %; Status: F Test: MONO %; Value: 3.7; Range: 0.0-5.0; Units: %; Status: F Test: EOS %; Value: 3.2; Range: 0.0-3.0; Abnormal: Above high normal; Units: %; Status: F Test: BASO %; Value: 2.6; Range: 0.0-1.0; Abnormal: Above high normal; Units: %; Status: F Test: LARGE UNSTAINED CELL %; Value: 1.5; Range: 0.0-4.0; Units: %; Status: F Test: NEUTROPHILS #; Value: 6.2; Range: 1.8-7.7; Units: K/mm3; Status: F Test: LYMPH #; Value: 1.5; Range: 1.5-4.5; Units: K/mm3; Status: F Test: MONO #; Value: 0.3; Range: 0.0-0.8; Units: K/mm3; Status: F Test: EOS #; Value: 0.3; Range: 0.0-0.50; Units: K/mm3; Status: F Test: BASO #; Value: 0.2; Range: 0.0-0.2; Units: K/mm3; Status: F Test: LARGE UNSTAINED CELL #; Value: 0.1; Range: 0.0-0.4; Units: K/mm3; Status: F Lab Order: HCG, SERUM QUANTITATIVE; SPEC'M 10/05/16 08:33 Test: HCG, SERUM QUANTITATIVE; Value: < 1.0; Units: MIU/ML; Status: F Test Note: ; GESTATIONAL AGE APPROXIMATE HCG RANGE (MIU/ML) 0.2-1 WEEK 5-50 1-2 WEEKS 50-500 2-3 WEEKS 100-5,000 3-4 WEEKS 500-10,000 4-5 WEEKS 1,000-50,000 5-6 WEEKS 10,000-100,000 6-8 WEEKS 15,000-200,000 2-3 MONTHS 10,000-100,000 NON FEMALES LESS THAN 3.0 Patient samples may contain human heterophilic antibodies that could react with immunoassays to give falsely elevated or depressed results. This assay has been designed to minimize interference from heterophilic antibodies. Elevated hCG levels have also been associated with trophoblastic disease and nontrophoblastic neoplasms. The possibility of having these diseases should be considered before a diagnosis of is made. This test is not intended for use as a surrogate marker for aiding in the diagnosis or monitoring the treatment of cancer patients. Siemens PerBlue methodology. Lab Order: VENOUS BLOOD GAS; SPEC'M 10/05/16 08:33 Test: VENOUS PH; Value: 7.363; Range: 7.330-7.430; Units: UNITS; Status: F Test: VENOUS PARTIAL PRESSURE CO2; Value: 50.0; Range: 38.0-50.0; Units: mmHg; Status: F Test: VENOUS PARTIAL PRESSURE O2; Value: 68.9; Range: 30.0-50.0; Abnormal: Above high normal; Units: mmHg; Status: F Test: VENOUS TOTAL CO2; Value: 29.3; Range: 24.0-28.0; Abnormal: Above high normal; Units: MEQ/L; Status: F Test: VENOUS HCO3; Value: 27.8; Range: 23.0-27.0; Abnormal: Above high normal; Units: MEQ/L; Status: F Test: VENOUS BASE EXCESS; Value: 1.6; Range: -2.0-2.0; Status: F Test: VENOUS STANDARD HCO3; Value: 25.8; Units: MEQ/L; Status: F Test: VENOUS O2 SATURATION; Value: 94.4; Range: 60.0-80.0; Abnormal: Above high normal; Units: %; Status: F Lab Order: CBC WITH DIFFERENTIAL; SPEC'M 10/06/16 06:35 Test: WHITE BLOOD COUNT; Value: 6.6; Range: 4.0-10.0; Units: K/mm3; Status: F Test: RED BLOOD COUNT; Value: 4.15; Range: 4.00-5.40; Units: M/mm3; Status: F Test: HEMOGLOBIN; Value: 12.5; Range: 12.0-16.0; Units: g/dl; Status: F Test: HEMATOCRIT; Value: 38.6; Range: 36.0-47.0; Units: %; Status: F Test: MEAN CORPUSCULAR VOLUME; Value: 93.2; Range: 80.0-96.0; Units: fl; Status: F Test: MEAN CORPUSCULAR HEMOGLOBIN; Value: 30.2; Range: 27.0-33.0; Units: pg; Status: F Test: MEAN CORPUSCULAR HGB CONC; Value: 32.4; Range: 32.0-36.5; Units: g/dl; Status: F Test: RED CELL DISTRIBUTION WIDTH; Value: 13.1; Range: 11.5-14.5; Units: %; Status: F Test: PLATELET COUNT, AUTOMATED; Value: 207; Range: 150-450; Units: k/mm3; Status: F Test: NEUTROPHILS %; Value: 62.6; Range: 36.0-66.0; Units: %; Status: F Test: LYMPH %; Value: 26.2; Range: 24.0-44.0; Units: %; Status: F Test: MONO %; Value: 4.2; Range: 0.0-5.0; Units: %; Status: F Test: EOS %; Value: 4.3; Range: 0.0-3.0; Abnormal: Above high normal; Units: %; Status: F Test: BASO %; Value: 0.7; Range: 0.0-1.0; Units: %; Status: F Test: LARGE UNSTAINED CELL %; Value: 1.9; Range: 0.0-4.0; Units: %; Status: F Test: NEUTROPHILS #; Value: 4.1; Range: 1.8-7.7; Units: K/mm3; Status: F Test: LYMPH #; Value: 1.7; Range: 1.5-4.5; Units: K/mm3; Status: F Test: MONO #; Value: 0.3; Range: 0.0-0.8; Units: K/mm3; Status: F Test: EOS #; Value: 0.3; Range: 0.0-0.50; Units: K/mm3; Status: F Test: BASO #; Value: 0.0; Range: 0.0-0.2; Units: K/mm3; Status: F Test: LARGE UNSTAINED CELL #; Value: 0.1; Range: 0.0-0.4; Units: K/mm3; Status: F Lab Order: BASIC METABOLIC PROFILE; SPEC'M 10/06/16 06:35 Test: GLUCOSE, FASTING; Value: 94; Range: 70-105; Units: MG/DL; Status: F Test: BLOOD UREA NITROGEN; Value: 14; Range: 7-18; Units: MG/DL; Status: F Test: CREATININE FOR GFR; Value: 0.80; Range: 0.55-1.02; Units: MG/DL; Status: F Test: GLOMERULAR FILTRATION RATE; Value: > 60.0; Range: >58; Status: F Test: SODIUM LEVEL; Value: 143; Range: 136-145; Units: MEQ/L; Status: F Test: POTASSIUM SERUM; Value: 4.3; Range: 3.5-5.1; Units: MEQ/L; Status: F Test: CHLORIDE LEVEL; Value: 108; Range: 98-107; Abnormal: Above high normal; Units: MEQ/L; Status: F Test: CARBON DIOXIDE LEVEL; Value: 27; Range: 21-32; Units: MEQ/L; Status: F Test: ANION GAP; Value: 8; Range: 8-16; Units: MEQ/L; Status: F Test: CALCIUM LEVEL; Value: 8.3; Range: 8.5-10.1; Abnormal: Below low normal; Units: MG/DL; Status: F Test Note: ; Units are mL/min/1.73 m2 Chronic Kidney Disease Staging per NKF: Stage I & II GFR >=60 Normal to Mildly Decreased Stage III GFR 30-59 Moderately Decreased Stage IV GFR 15-29 Severely Decreased Stage V GFR <15 Very Little GFR Left ESRD GFR <15 on KENO ATTENDANT Radiology Order: EKG-ADULT Test: EKG-ADULT REASON FOR EXAMINATION: overdose; Stationary ECG Study; [facility] - ED; ; Test Date: 2016-10-05; Pat Name: HOMEROLYDIA KLINE Department:; Room: [place] [address]; Gender: F 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; : 1975 Requested By: BARBIE HART; Order Number: [id number] Reading MD: Kristina Davis; Measurements; Intervals [place]; Rate: 99 P: 53; ME: 170 QRS: 69; QRSD: 84 T: 25; QT: 353; QTc: 454; Interpretive Statements; SINUS RHYTHM; INCREASED RATE 12/07/13; Electronically Signed On 10-06-2016 7:20:50 EST by Kristina Davis; Radiology Order: CT Head Without Contrast Test: CT Head Without Contrast REASON FOR EXAMINATION: aloc; ; CLINICAL HISTORY: Altered level of consciousness.; TECHNIQUE: Multiple axial brain CT scan sections were obtained from base to vertex without contrast a; dministration.; COMMENTS:; The study shows normal configuration of sella turcica. There are no intra or extra-axial collections.; There is no mass effect or midline shift. There is no evidence of hematoma formation. No hydrocephal; us is present. 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 cs11 10/06 16:12 Discharge Assessment: Patient awake and alert. patient administered narcotics - no. The aa3 following High Risk Discharge criteria are identified:. Condition: good. CT Study completed. Admission hand-off: Report called to [facility]. Property :Personal belongings accompany Pt. 16:15 Patient left the ED. aa3 Signatures: Dispatcher [employer] EDMS Elisa Robertson, Sole Leather Cutting Machine Operator Unit deg Dayana Blair, RN RN kmg1 Mason Harding, RN RN Donny Donato 3 Dianelys Griffin RN RN pml Barbie Hart, DO cs11 McLear, Brooklynn, ENTERPRISE CLOUD ARCHITECT ENTERPRISE CLOUD ARCHITECT tmm1 Evelia Marques,RN RN aa3 Anastasia Hatfield, Sole Leather Cutting Machine Operator Unit m Genet EnnisRN RN abel2 Mitali Perez RN RN [facility] Kristina Man Paul, Reg Reg pm4 Corrections: (The following items were deleted from the chart) 10/05 01:45 00:28 THYROID STIMULATING HORMONE+LAB sent. [facility] EDNV 01:45 01:39 THYROID PROFILE+LAB sent. [facility] EDNV MTDD
--- NOTE | 2016-10-06 16:17 | EDDOCDS ---
Physician Documentation [facility] Name: Adeola Kline Age: 40 yrs Sex: Female : 1975 Arrival Date: 10/04/2016 Time: 23:47 Bed Admit Hold Private MD: Antione Murphy Disposition: 10/05 02:33 Critical Care:. cs11 Disposition: 10/05/16 02:31 Hospitalization ordered by Jaqueline Chiu for Inpatient Admission. 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 - Bed requested for [place]. - Status is Inpatient Admission. aa3 - Condition is Stable. - Problem is new. - Symptoms are unchanged. Historical: - Allergies: Ibuprofen; SULFA (SULFONAMIDES); - Home Meds: 1. fentanyl patches Unknown 2. Vicodin 5-300 mg Oral tab 1 tab twice a day for Pain 3. Xanax 2 mg Oral tab 1 tab 3 times per day for Anxiety - PMHx: Anxiety; Chronic Neck Pain; Hypertension; - PSHx: Unable to obtain; - Social history: Smoking status: unknown if patient ever smoked tobacco. patient unresponsive. - : Unable to assess if pt is on anticoagulants. Unable to Verify Home Med List with the patient / caregiver. - Exposure Risk Screening:: Unable to Assess. Vital Signs: 10/04 23:54 BP 119 / 65 (auto/); kas2 23:56 Pulse 113 MON; Pulse Ox 94% ; kas2 10/05 00:00 BP 119 / 65; Pulse 116; Resp 18; Pulse Ox 100% on Non-rebreather mask; Weight 101.83 kg kas2 / 224.5 lbs; Height 5 ft. 5 in. (165.10 cm); 00:00 BP 123 / 71 (auto/); kas2 00:00 Pulse 108 MON; Pulse Ox 90% ; kas2 00:15 BP 122 / 57 (auto/); kas2 00:15 Pulse 106 MON; Pulse Ox 98% ; kas2 00:30 BP 113 / 54 (auto/); kas2 00:30 Pulse 106 MON; kas2 00:36 BP 121 / 64 (auto/); kas2 00:36 Pulse 108 MON; Pulse Ox 99% ; kas2 00:45 BP 109 / 55 (auto/); kas2 00:45 Pulse 102 MON; Pulse Ox 98% ; kas2 00:51 Pulse 101 MON; Pulse Ox 98% ; kas2 01:00 BP 128 / 60 (auto/); kas2 01:15 BP 105 / 57 (auto/); kas2 01:15 Pulse 94 MON; Pulse Ox 99% ; kas2 01:30 BP 106 / 56 (auto/); kas2 01:30 Pulse 89 MON; Pulse Ox 98% ; kas2 01:42 BP 108 / 64 (auto/); kas2 01:42 Pulse 85 MON; Pulse Ox 100% ; kas2 01:45 BP 113 / 63 (auto/); kas2 01:45 Pulse 87 MON; Pulse Ox 99% ; kas2 02:00 BP 110 / 59 (auto/); kas2 02:00 Pulse 89 MON; Pulse Ox 99% ; kas2 02:15 BP 104 / 59 (auto/); kas2 02:15 Pulse 89 MON; Pulse Ox 98% ; kas2 02:30 BP 102 / 58 (auto/); kas2 02:30 Pulse 87 MON; Pulse Ox 99% ; kas2 02:45 BP 102 / 55 (auto/); kas2 02:45 Pulse 85 MON; Pulse Ox 99% ; kas2 03:00 BP 101 / 58 (auto/); kas2 03:00 Pulse 86 MON; Pulse Ox 99% ; kas2 03:15 BP 106 / 55 (auto/); kas2 03:15 Pulse 85 MON; Pulse Ox 99% ; kas2 03:26 Resp 18; Temp 98.2(O); kas2 03:30 BP 116 / 64 (auto/); kas2 03:30 Pulse 83 MON; Pulse Ox 99% ; kas2 03:30 Resp 18; Temp 97.6(O); Pulse Ox 99% ; kas2 03:45 BP 116 / 51 (auto/); kas2 03:45 Pulse 80 MON; Pulse Ox 100% ; kas2 04:00 BP 117 / 60 (auto/); kas2 04:00 Pulse 86 MON; Pulse Ox 100% ; kas2 04:15 BP 112 / 55 (auto/); kas2 04:15 Pulse 88 MON; Pulse Ox 99% ; kas2 04:30 BP 128 / 63 (auto/); kas2 04:30 Pulse 89 MON; Pulse Ox 99% ; kas2 04:30 Resp 20; Temp 98.0(O); kas2 04:45 BP 106 / 56 (auto/); kas2 04:45 Pulse 83 MON; Pulse Ox 100% ; kas2 05:00 BP 103 / 63 (auto/); kas2 05:00 Pulse 85 MON; Pulse Ox 99% ; [facility] 05:15 BP 122 / 57 (auto/); kas2 05:15 Pulse 85 MON; Pulse Ox 99% ; [facility] 10/06 16:03 BP 114 / 64; Pulse 86; Resp 18; Temp 98.7(O); Pulse Ox 96% on R/A; dy 10/05 00:00 Body Mass Index 37.36 (101.83 kg, 165.10 cm) [facility] MDM: 10/05 00:12 Consult PFS/PSA/Snack Foods Mixer Operator ordered. cs11 00:12 Consult PFS/PSA/Snack Foods Mixer Operator: Patient's case requires discussion with on-call cs11 Psychiatrist ordered. 00:12 PSA/PFS to call Nursing Tool Trouble Shooter, to enter patient data on [place] Safe Act if patient cs11 involuntarily admitted or transferred for SI or HI ordered. 00:12 Confirm accurate psychiatric medication list and times of last dosage ordered. cs11 00:12 Detain Pt Until Medically/PFS Cleared ordered. cs11 00:12 Bernardo ordered. cs11 00:12 naloxone 4 mg IVP once ordered. cs11 00:13 Acetaminophen Level Ordered. EDMS 00:13 Basic Metabolic Profile Ordered. EDMS 00:13 Complete Blood Count Ordered. EDMS 00:13 Drug Eval Toxicology ED Only Ordered. EDMS 00:13 Ethyl Alcohol (ethanol) Ordered. EDMS 00:13 Liver Profile Ordered. EDMS 00:13 Salicylate Level Ordered. EDMS 00:13 ECG WITH READING ER PHYS+CARDIAG ordered. EDMS 00:21 CT Head Without Contrast Ordered. EDMS 00:58 Fingerstick Blood Sugar Reviewed. cs11 00:58 Drug Eval Toxicology ED Only Reviewed. cs11 00:58 Complete Blood Count Reviewed. cs11 01:10 Acetaminophen Level Reviewed. cs11 01:10 Basic Metabolic Profile Reviewed. cs11 01:10 Liver Profile Reviewed. cs11 01:10 Salicylate Level Reviewed. cs11 01:10 Ethyl Alcohol (ethanol) Reviewed. cs11 01:18 Call Respiratory ordered. cs11 01:19 -Arterial Blood Gas Ordered. EDMS 01:19 Ammonia (Little Green Tube on Ice, Not Pea Green) Ordered. EDMS 01:39 Call Respiratory complete. kas2 01:45 THYROID PROFILE Ordered. EDMS 02:12 Acetaminophen Level Reviewed. cs11 02:12 Basic Metabolic Profile Reviewed. cs11 02:12 Liver Profile Reviewed. cs11 02:12 Salicylate Level Reviewed. cs11 02:12 -Arterial Blood Gas Reviewed. cs11 02:12 Ammonia (Little Green Tube on Ice, Not Pea Green) Reviewed. cs11 02:12 THYROID PROFILE Reviewed. cs11 02:12 Ethyl Alcohol (ethanol) Reviewed. cs11 02:12 CT Head Without Contrast Reviewed. cs11 02:14 BED REQUEST+ADM ordered. EDMS 02:43 Consult PFS/PSA/Snack Foods Mixer Operator: Patient's case requires discussion with on-call cl Psychiatrist complete. 02:43 Consult PFS/PSA/Snack Foods Mixer Operator complete. cl 02:43 PSA/PFS to call Nursing Tool Trouble Shooter, to enter patient data on [place] Safe Act if patient cl involuntarily admitted or transferred for SI or HI complete. 02:59 COMPLETE COMPHRENSIVE METABOLI Ordered. EDMS 03:00 CBC WITH DIFFERENTIAL Ordered. EDMS 03:01 Admission / Observation Status ordered. EDMS 03:09 Financial registration complete. pm4 03:30 [facility] Payment Agreement was scanned into [employer] and attached to record. pm4 07:48 T-Sheet-- Draft Copy was scanned into [employer] and attached to record. seh 08:18 HCG, SERUM QUANTITATIVE Ordered. EDMS 08:18 VENOUS BLOOD GAS Ordered. EDMS 11:24 REGULAR DIET PED PLASTIC WEEKS ordered. EDMS 19:31 CBC WITH DIFFERENTIAL Ordered. EDMS 19:32 BASIC METABOLIC PROFILE Ordered. EDMS 10/06 08:53 ELECTROCARDIOGRAM ADULT ordered. EDMS 10:34 ECHOCARD,DOPPLER/COLOR FLOW ordered. EDMS Administered Medications: 10/04 23:57 Drug: naloxone 4 mg [naloxone 1 mg/mL injection syringe (4 mL)] Route: IVP; Site: right [facility] wrist; Critical Care Time: 10/05 02:33 Critical care time: Bedside Care: 120 minutes. Total time: 120 minutes cs11 Signatures: Dispatcher [employer] EDMS Davian Quintana, PSA PSA cl Mason Harding RN RN dy Schiff, Craig, DO DO cs11 Evelia Marques RN RN aa3 Mitali Perez RN RN kas2 Kristina Man Paul, Reg Reg pm4 The chart was reviewed and I authenticate all verbal orders and agree with the evaluation and treatment provided.Corrections: (The following items were deleted from the chart) 01:45 00:13 THYROID STIMULATING HORMONE+LAB ordered. EDMS EDMS 01:45 01:10 THYROID STIMULATING HORMONE+LAB reviewed. cs11 EDMS 01:45 01:19 THYROID PROFILE+LAB ordered. EDMS EDMS 11:23 03:01 NPO DIET ordered. EDMS EDMS Attachments: 03:30 [facility] Payment Agreement pm4 07:48 T-Sheet-- Draft Copy [facility] MTDD
[2016-10-06 16:25] VITALS: BP 128/75
[2016-10-06] MEDS: ACETAMINOPHEN TAB 650MG DOSE (2X325MG) PO PRN (19:45)
[2016-10-06 22:00] VITALS: BP 109/57
[2016-10-07] MEDS: NS 1,000 ML IV SCH ×2 (00:41→07:50)
[2016-10-07] MEDS: ACETAMINOPHEN TAB 650MG DOSE (2X325MG) PO PRN (04:35)
[2016-10-07 06:00] VITALS: BP_SYST 124; BP_SYST 126; BP_SYST 134; BP_DIAS 73; BP_DIAS 76
[2016-10-07 06:02] LABS: BASO % 0.5 % (0.0-1.0); EOS # 0.2 K/mm3 (0.0-0.50); EOS % 5.1 % (0.0-3.0); LARGE UNSTAINED CELL # 0.1 K/mm3 (0.0-0.4); LARGE UNSTAINED CELL % 2.2 % (0.0-4.0); LYMPH # 1.6 K/mm3 (1.5-4.5); LYMPH % 34.4 % (24.0-44.0); MEAN CORPUSCULAR HEMOGLOBIN 30.2 pg (27.0-33.0); MEAN CORPUSCULAR HGB CONC 32.6 g/dl (32.0-36.5); MEAN CORPUSCULAR VOLUME 92.6 fl (80.0-96.0); MONO # 0.2 K/mm3 (0.0-0.8); MONO % 5.2 % (0.0-5.0); NEUTROPHILS # 2.4 K/mm3 (1.8-7.7); NEUTROPHILS % 52.6 % (36.0-66.0); PLATELET COUNT, AUTOMATED 196 k/mm3 (150-450); RED CELL DISTRIBUTION WIDTH 13.1 % (11.5-14.5); WHITE BLOOD COUNT 4.5 K/mm3 (4.0-10.0)
[2016-10-07 06:09] LABS: ANION GAP 6 MEQ/L (8-16); BLOOD UREA NITROGEN 14 MG/DL (7-18); CALCIUM LEVEL 7.9 MG/DL (8.5-10.1); CARBON DIOXIDE LEVEL 27 MEQ/L (21-32); CHLORIDE LEVEL 111 MEQ/L (98-107); CREATININE FOR GFR 0.77 MG/DL (0.55-1.02); GLOMERULAR FILTRATION RATE > 60.0 (>58); GLUCOSE, FASTING 97 MG/DL (70-105); SODIUM LEVEL 144 MEQ/L (136-145)
--- NOTE | 2016-10-07 06:52 | CR ---
DATE OF CONSULTATION: 10/06/2016 HISTORY OF PRESENT ILLNESS: I was asked to evaluate this 40-year-old white woman who was brought to the emergency room today when she was found on the floor in altered mental status responsive to verbal stimuli and very confused. They had found two loaded syringes, a onyx chip terrazzo worker, a spoon and empty syringe in the room on the bed, which the patient insists belong to her roommate. They gave her some Narcan in the emergency room with little response. CT scan of the head was done and that was negative. The only drug by toxicology was benzodiazepines. She just received a recent prescription for Xanax, which she says she takes 2 mg three times a day and it is prescribed by Dr. Allison Murphy. She received a 30 day supply, so she received 90 pills a few days ago. [facility] and they indicated that there was only about 15 pills left in the bottle. The patient insists that she did not overdose. She does seem to have a history of some drug abuse in the past, but the patient really minimizes everything. She said that that was "years ago". The patient was just discharged from some type of fdc and she was mandated to that program which is a type of - she described it as a "boot camp". She said this is for people that have substance abuse problems. She said she was sent there because she had two DWIs, but she insists that she was driving under the influence of her prescription medications that she was getting for her physical problems via the pain clinic. She states that she was not abusing it. She says that Dr. Allison Murphy has been her doctor for the past years on and off and he has prescribed Prozac 40 mg daily and Xanax 2 mg three times a day for her all along. She continues to be deny that she made any suicidal attempt today. PAST PSYCHIATRIC HISTORY: This patient does have a history of a prior psychiatric hospitalization in November 2013. At that point, she was in the hospital for just a few days and again she was brought to the emergency room in an intoxicated condition and it required several doses of Narcan to stabilize her. According to the inpatient records, she gave a history of abusing substances since the age of 27, which she said included heroin, ecstasy, cocaine , and surinder. The patient also had another psychiatric hospitalization in September 2006. At that point, she stated that she was depressed and having suicidal thoughts. She admitted to using crack cocaine, but that was only occasional. It was felt that she was minimizing her use of drugs at that point. She denies that she has ever made any actual suicidal attempts. SUBSTANCE ABUSE HISTORY: This is pretty much as noted above. FAMILY HISTORY: She says her grandmother had some type of mental illness, but she is not sure what it could be and she says her maternal grandfather by suicide. ABUSE HISTORY: She denies any history of any physical or sexual abuse. MENTAL STATUS EXAMINATION: She is alert and oriented times three. Eye contact is good. She is sitting up in her bed eating her lunch. Quite spontaneous. There is no formal thought disorder. She said her mood is "good". Affect is full range and appropriate. She is not psychotic. She is denying suicidal or homicidal ideation. Concentration is fair. Memory intact. Insight and judgment appears to be good, although I suspect she is probably minimizing her substance abuse, particularly since it was reported that only 15 pills were left in her bottle of Xanax that she obtained just a few days ago. Other specified depressive disorder. Rule out Benzodiazepine abuse. Opioid use disorder, in remission. Cocaine use disorder, in remission. Recommendations: At this point the patient is denying that she overdosed on her benzodiazepines. Again I don't know how reliable she is, since it was reported that there were only 15 pills left in her bottle of Xanax she obtained a few days ago.However, she insists that she at no point made a suicidal attempt. She has no history of any prior actual suicidal attempts. Therefore, from a psychiatric point of view, there is no indication to hospitalize the patient.She is not complaining of any mood symptoms. HERNANDO
[2016-10-07] MEDS: PANTOPRAZOLE 40MG INJ (PROTONIX) (C9113) IV SCH (08:44)
[2016-10-07] MEDS: PARoxetine 20 MG TAB PO SCH ×2 (08:44→08:57)
[2016-10-07] MEDS: ENOXAPARIN 40 MG/0.4 ML SYRINGE (J1650) SC SCH (08:44)
[2016-10-07] MEDS ORDERED: PROZ40CA PO (12:33)
--- NOTE | 2016-10-07 15:27 | DS.PDOC ---
Discharge Summary General Date of Admission Oct 05, 2016 at 03:05 Date of Discharge Oct 07, 2016 at 13:13 Attending Physician: LENNIE ORR MD Specialist/Consultants Involve: Cady Mario Discharge Summary PROCEDURES PERFORMED DURING STAY: None. COMPLICATIONS/CHIEF COMPLAINT: Benzodiazepine Overdose ADMISSION/DISCHARGE DIAGNOSES: 1. Altered mental status likely secondary to benzodiazepines 2. Elevated liver function tests 3. Hypertension 4. Polysubstance abuse 5. Anxiety HISTORY OF PRESENT ILLNESS/HOSPITAL COURSE: This is a 40-year-old female past with history of prior substance abuse and a prior suicide attempt, decreased currently to benzodiazepines prescribed by Dr Cohn, who was at a [facility] where she currently resides. [facility]. Pt was found to be on the floor confused after people heard a thump. Patient was minimally responsive. EMS arrived and gave Narcan with minimal to no response. Upon arrival the ED patient also received Narcan again with no response. Patient was told to have taken benzodiazepines as an overdose however when patient became more awake, she denied this. The nurse had called back at the Center and they had noted that 40 of 90 tablets of benzodiazepines are missing since they were filled 09/30/2016. Patient had no EKG changes. Remained hemodynamically stable. When patient was more awake, Dr. López was consulted and believed that the patient is not a suicide attempt. She had recommended that the patient be discharged, with follow-up with her outpatient psychiatrist. She also recommended to discontinue alprazolam and continue the patient on her SSRI. Patient did have mild elevations of her LFTs which were noted on prior admission 2. She'll need to be followed up with her primary care physician regarding this. DISCHARGE MEDICATIONS: Please see below. ALLERGIES: Please see below. PHYSICAL EXAMINATION ON DISCHARGE: Vitals: (see below) General: No acute distress, laying comfortably in bed. HEENT: Moist mucous membranes. Neck: No JVD or lymphadenopathy Cardiac: RRR, No murmurs Pulm: Clear to auscultation b/l. No wheezing, rhonchi Abd: NT/ND + BS Ext: No edema or cyanosis Patient is not homicidal or suicidal. LABORATORY DATA: Please see below. IMAGING: CT of head on 10/05/16 negative for acute pathology. VTE Prophylaxis ordered?: Yes DISCHARGE CONDITION: Stable DISPOSITION: 01 Home, Self-Care ACTIVITY: As tolerated DIET: As tolerated DISCHARGE PLAN AND INSTRUCTIONS: Follow-up with PCP and psychiatrist in 1-2 weeks. Continue taking Prozac 40 mg daily. Psychiatrist (Dr. López) has recommended discontinuing alprazolam. TIME SPENT ON DISCHARGE: Greater than 30 minutes. Vital Signs/I&Os Vital Signs Date Time Temp Pulse Resp B/P Pulse Ox O2 Delivery O2 Flow Rate FiO2 10/07/16 06:00 98.6 79 20 126/73 98 10/06/16 16:25 Room Air 10/05/16 05:30 2.0 I&O- Last 24 Hours up to 6 AM 10/07/16 06:00 Intake Total 1910 ml Output Total 3725 ml Balance -1815 ml Laboratory Data Labs 24H Laboratory Tests 2 10/07/16 05:30: Anion Gap 6L, White Blood Count 4.5, Red Blood Count 3.95L, Hemoglobin 11.9L, Hematocrit 36.6, Mean Corpuscular Volume 92.6, Mean Corpuscular Hemoglobin 30.2 , Mean Corpuscular Hemoglobin Concent 32.6, Red Cell Distribution Width 13.1, Platelet Count 196, Neutrophils (%) (Auto) 52.6, Lymphocytes (%) (Auto) 34.4, Monocytes (%) (Auto) 5.2H, Eosinophils (%) (Auto) 5.1H, Basophils (%) (Auto) 0.5 , Neutrophils # (Auto) 2.4, Lymphocytes # (Auto) 1.6, Monocytes # (Auto) 0.2, Eosinophils # (Auto) 0.2, Basophils # (Auto) 0.0, Blood Urea Nitrogen 14, Creatinine 0.77, Sodium Level 144, Potassium Level 4.0, Chloride Level 111H, Carbon Dioxide Level 27, Calcium Level 7.9L, Glomerular Filtration Rate > 60.0, Large Unclassified Cells # 0.1, Large Unclassified Cells % 2.2 CBC/BMP Laboratory Tests 10/07/16 05:30 Calcium Level 7.9 L, Red Blood Count 3.95 L, Mean Corpuscular Volume 92.6, Mean Corpuscular Hemoglobin 30.2, Mean Corpuscular Hemoglobin Concent 32.6, Red Cell Distribution Width 13.1, Neutrophils (%) (Auto) 52.6, Lymphocytes (%) (Auto) 34.4, Monocytes (%) (Auto) 5.2 H, Eosinophils (%) (Auto) 5.1 H, Basophils (%) ( Auto) 0.5, Neutrophils # (Auto) 2.4, Lymphocytes # (Auto) 1.6, Monocytes # (Auto ) 0.2, Eosinophils # (Auto) 0.2, Basophils # (Auto) 0.0 Medications Scheduled Fluoxetine HCl (Prozac) 40 Mg Cap 40 MG PO DAILY Allergies Coded Allergies: Sulfa Drugs (Verified Allergy, Intermediate, HIVES, 12/23/12) Sulfa Drugs Cross Reactors (Verified Allergy, Intermediate, HIVES, 12/23/12) [place] (Verified Allergy, Unknown, 12/23/12) Latex (Verified Allergy, Unknown, 12/23/12) Ibuprofen (Verified Adverse Reaction, Intermediate, UPSET STOMACH, 10/06/16 ) PER PATIENT LENNIE ORR MD Oct 07, 2016 15:27
--- NOTE | 2016-10-08 17:16 | EDDOCDS ---
Physician Documentation [facility] Name: Adeola Kline Age: 40 yrs Sex: Female : 1975 Arrival Date: 10/04/2016 Time: 23:47 Bed Admit Hold Private MD: Antione Murphy Disposition: 10/05 02:33 Critical Care:. cs11 Disposition: 10/05/16 02:31 Hospitalization ordered by Jaqueline Chiu for Inpatient Admission. 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 - Bed requested for 4 [place]. - Status is Inpatient Admission. aa3 - Condition is Stable. - Problem is new. - Symptoms are unchanged. Historical: - Allergies: Ibuprofen; SULFA (SULFONAMIDES); - Home Meds: 1. fentanyl patches Unknown 2. Vicodin 5-300 mg Oral tab 1 tab twice a day for Pain 3. Xanax 2 mg Oral tab 1 tab 3 times per day for Anxiety - PMHx: Anxiety; Chronic Neck Pain; Hypertension; - PSHx: Unable to obtain; - Social history: Smoking status: unknown if patient ever smoked tobacco. patient unresponsive. - : Unable to assess if pt is on anticoagulants. Unable to Verify Home Med List with the patient / caregiver. - Exposure Risk Screening:: Unable to Assess. Vital Signs: 10/04 23:54 BP 119 / 65 (auto/); kas2 23:56 Pulse 113 MON; Pulse Ox 94% ; kas2 10/05 00:00 BP 119 / 65; Pulse 116; Resp 18; Pulse Ox 100% on Non-rebreather mask; Weight 101.83 kg kas2 / 224.5 lbs; Height 5 ft. 5 in. (165.10 cm); 00:00 BP 123 / 71 (auto/); kas2 00:00 Pulse 108 MON; Pulse Ox 90% ; kas2 00:15 BP 122 / 57 (auto/); kas2 00:15 Pulse 106 MON; Pulse Ox 98% ; kas2 00:30 BP 113 / 54 (auto/); kas2 00:30 Pulse 106 MON; kas2 00:36 BP 121 / 64 (auto/); kas2 00:36 Pulse 108 MON; Pulse Ox 99% ; kas2 00:45 BP 109 / 55 (auto/); kas2 00:45 Pulse 102 MON; Pulse Ox 98% ; kas2 00:51 Pulse 101 MON; Pulse Ox 98% ; kas2 01:00 BP 128 / 60 (auto/); kas2 01:15 BP 105 / 57 (auto/); kas2 01:15 Pulse 94 MON; Pulse Ox 99% ; kas2 01:30 BP 106 / 56 (auto/); kas2 01:30 Pulse 89 MON; Pulse Ox 98% ; kas2 01:42 BP 108 / 64 (auto/); kas2 01:42 Pulse 85 MON; Pulse Ox 100% ; kas2 01:45 BP 113 / 63 (auto/); kas2 01:45 Pulse 87 MON; Pulse Ox 99% ; kas2 02:00 BP 110 / 59 (auto/); kas2 02:00 Pulse 89 MON; Pulse Ox 99% ; kas2 02:15 BP 104 / 59 (auto/); kas2 02:15 Pulse 89 MON; Pulse Ox 98% ; kas2 02:30 BP 102 / 58 (auto/); kas2 02:30 Pulse 87 MON; Pulse Ox 99% ; kas2 02:45 BP 102 / 55 (auto/); kas2 02:45 Pulse 85 MON; Pulse Ox 99% ; kas2 03:00 BP 101 / 58 (auto/); kas2 03:00 Pulse 86 MON; Pulse Ox 99% ; kas2 03:15 BP 106 / 55 (auto/); kas2 03:15 Pulse 85 MON; Pulse Ox 99% ; kas2 03:26 Resp 18; Temp 98.2(O); kas2 03:30 BP 116 / 64 (auto/); kas2 03:30 Pulse 83 MON; Pulse Ox 99% ; kas2 03:30 Resp 18; Temp 97.6(O); Pulse Ox 99% ; kas2 03:45 BP 116 / 51 (auto/); kas2 03:45 Pulse 80 MON; Pulse Ox 100% ; kas2 04:00 BP 117 / 60 (auto/); kas2 04:00 Pulse 86 MON; Pulse Ox 100% ; kas2 04:15 BP 112 / 55 (auto/); kas2 04:15 Pulse 88 MON; Pulse Ox 99% ; kas2 04:30 BP 128 / 63 (auto/); kas2 04:30 Pulse 89 MON; Pulse Ox 99% ; kas2 04:30 Resp 20; Temp 98.0(O); kas2 04:45 BP 106 / 56 (auto/); kas2 04:45 Pulse 83 MON; Pulse Ox 100% ; kas2 05:00 BP 103 / 63 (auto/); kas2 05:00 Pulse 85 MON; Pulse Ox 99% ; [facility] 05:15 BP 122 / 57 (auto/); kas2 05:15 Pulse 85 MON; Pulse Ox 99% ; [facility] 10/06 16:03 BP 114 / 64; Pulse 86; Resp 18; Temp 98.7(O); Pulse Ox 96% on R/A; dy 10/05 00:00 Body Mass Index 37.36 (101.83 kg, 165.[address] cm) [facility] MDM: 10/05 00:12 Consult PFS/PSA/Litigation Paralegal ordered. cs11 00:12 Consult PFS/PSA/Litigation Paralegal: Patient's case requires discussion with on-call cs11 Psychiatrist ordered. 00:12 PSA/PFS to call Nursing Air Vice Marshal, to enter patient data on [place] Safe [place] if patient cs11 involuntarily admitted or transferred for SI or HI ordered. 00:12 Confirm accurate psychiatric medication list and times of last dosage ordered. cs11 00:12 Detain Pt Until Medically/PFS Cleared ordered. cs11 00:12 Bernardo ordered. cs11 00:12 naloxone 4 mg IVP once ordered. cs11 00:13 Acetaminophen Level Ordered. EDMS 00:13 Basic Metabolic Profile Ordered. EDMS 00:13 Complete Blood Count Ordered. EDMS 00:13 Drug Eval Toxicology ED Only Ordered. EDMS 00:13 Ethyl Alcohol (ethanol) Ordered. EDMS 00:13 Liver Profile Ordered. EDMS 00:13 Salicylate Level Ordered. EDMS 00:13 ECG WITH READING ER PHYS+CARDIAG ordered. EDMS 00:21 CT Head Without Contrast Ordered. EDMS 00:58 Fingerstick Blood Sugar Reviewed. cs11 00:58 Drug Eval Toxicology ED Only Reviewed. cs11 00:58 Complete Blood Count Reviewed. cs11 01:10 Acetaminophen Level Reviewed. cs11 01:10 Basic Metabolic Profile Reviewed. cs11 01:10 Liver Profile Reviewed. cs11 01:10 Salicylate Level Reviewed. cs11 01:10 Ethyl Alcohol (ethanol) Reviewed. cs11 01:18 Call Respiratory ordered. cs11 01:19 -Arterial Blood Gas Ordered. EDMS 01:19 Ammonia (Little Green Tube on Ice, Not Pea Green) Ordered. EDMS 01:39 Call Respiratory complete. kas2 01:45 THYROID PROFILE Ordered. EDMS 02:12 Acetaminophen Level Reviewed. cs11 02:12 Basic Metabolic Profile Reviewed. cs11 02:12 Liver Profile Reviewed. cs11 02:12 Salicylate Level Reviewed. cs11 02:12 -Arterial Blood Gas Reviewed. cs11 02:12 Ammonia (Little Green Tube on Ice, Not Pea Green) Reviewed. cs11 02:12 THYROID PROFILE Reviewed. cs11 02:12 Ethyl Alcohol (ethanol) Reviewed. cs11 02:12 CT Head Without Contrast Reviewed. cs11 02:14 BED REQUEST+ADM ordered. EDMS 02:43 Consult PFS/PSA/Litigation Paralegal: Patient's case requires discussion with on-call cl Psychiatrist complete. 02:43 Consult PFS/PSA/Litigation Paralegal complete. cl 02:43 PSA/PFS to call Nursing Air Vice Marshal, to enter patient data on [place] Safe Act if patient cl involuntarily admitted or transferred for SI or HI complete. 02:59 COMPLETE COMPHRENSIVE METABOLI Ordered. EDMS 03:00 CBC WITH DIFFERENTIAL Ordered. EDMS 03:01 Admission / Observation Status ordered. EDMS 03:09 Financial registration complete. pm4 03:30 [facility] Payment Agreement was scanned into [employer] and attached to record. pm4 07:48 T-Sheet-- Draft Copy was scanned into [employer] and attached to record. seh 08:18 HCG, SERUM QUANTITATIVE Ordered. EDMS 08:18 VENOUS BLOOD GAS Ordered. EDMS 11:24 REGULAR DIET PED PLASTIC WEEKS ordered. EDMS 19:31 CBC WITH DIFFERENTIAL Ordered. EDMS 19:32 BASIC METABOLIC PROFILE Ordered. EDMS 01 08:53 ELECTROCARDIOGRAM ADULT ordered. EDMS 10:34 ECHOCARD,DOPPLER/COLOR FLOW ordered. EDMS 10/07 13:46 ECG/EKG was scanned into [employer] and attached to record. gb Administered Medications: 10/04 23:57 Drug: naloxone 4 mg [naloxone 1 mg/mL injection syringe (4 mL)] Route: IVP; Site: right kas2 wrist; Critical Care Time: 10/05 02:33 Critical care time: Bedside Care: 120 minutes. Total time: 120 minutes cs11 Signatures: Dispatcher [employer] EDMS Davian Quintana, PSA PSA cl Amparo Callahan, Reg Reg gb Mason Harding, RN RN Cj Borja, DO cs11 Evelia Marques,RN RN aa3 Mitali PerezRN RN [facility] Kristina Man [facility] Jose Francisco Hargrove, Reg Reg pm4 The chart was reviewed and I authenticate all verbal orders and agree with the evaluation and treatment provided.Corrections: (The following items were deleted from the chart) 01:45 00:13 THYROID STIMULATING HORMONE+LAB ordered. EDMS EDMS :45 01:10 THYROID STIMULATING HORMONE+LAB reviewed. cs11 EDMS 01:45 01:19 THYROID PROFILE+LAB ordered. EDMS EDMS 11:23 03:01 NPO DIET ordered. EDMS EDMS Attachments: 03:30 [facility] Payment Agreement pm4 07:48 T-Sheet-- Draft Copy [facility] 10/07 13:46 ECG/EKG gb Chart Complete [facility]
--- NOTE | 2016-10-08 17:16 | EDDOCDS ---
Physician Documentation [facility] Name: Adeola Kline Age: 40 yrs Sex: Female : 1975 Arrival Date: 10/04/2016 Time: 23:47 Bed Admit Hold Private MD: Antione Murphy Disposition: 10/05 02:33 Critical Care:. cs11 Disposition: 10/05/16 02:31 Hospitalization ordered by Jaqueline Chiu for Inpatient Admission. 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 - Bed requested for 4 [place]. - Status is Inpatient Admission. aa3 - Condition is Stable. - Problem is new. - Symptoms are unchanged. Historical: - Allergies: Ibuprofen; SULFA (SULFONAMIDES); - Home Meds: 1. fentanyl patches Unknown 2. Vicodin 5-300 mg Oral tab 1 tab twice a day for Pain 3. Xanax 2 mg Oral tab 1 tab 3 times per day for Anxiety - PMHx: Anxiety; Chronic Neck Pain; Hypertension; - PSHx: Unable to obtain; - Social history: Smoking status: unknown if patient ever smoked tobacco. patient unresponsive. - : Unable to assess if pt is on anticoagulants. Unable to Verify Home Med List with the patient / caregiver. - Exposure Risk Screening:: Unable to Assess. Vital Signs: 10/04 23:54 BP 119 / 65 (auto/); kas2 23:56 Pulse 113 MON; Pulse Ox 94% ; kas2 10/05 00:00 BP 119 / 65; Pulse 116; Resp 18; Pulse Ox 100% on Non-rebreather mask; Weight 101.83 kg kas2 / 224.5 lbs; Height 5 ft. 5 in. (165.10 cm); 00:00 BP 123 / 71 (auto/); kas2 00:00 Pulse 108 MON; Pulse Ox 90% ; kas2 00:15 BP 122 / 57 (auto/); kas2 00:15 Pulse 106 MON; Pulse Ox 98% ; kas2 00:30 BP 113 / 54 (auto/); kas2 00:30 Pulse 106 MON; kas2 00:36 BP 121 / 64 (auto/); kas2 00:36 Pulse 108 MON; Pulse Ox 99% ; kas2 00:45 BP 109 / 55 (auto/); kas2 00:45 Pulse 102 MON; Pulse Ox 98% ; kas2 00:51 Pulse 101 MON; Pulse Ox 98% ; kas2 01:00 BP 128 / 60 (auto/); kas2 01:15 BP 105 / 57 (auto/); kas2 01:15 Pulse 94 MON; Pulse Ox 99% ; kas2 01:30 BP 106 / 56 (auto/); kas2 01:30 Pulse 89 MON; Pulse Ox 98% ; kas2 01:42 BP 108 / 64 (auto/); kas2 01:42 Pulse 85 MON; Pulse Ox 100% ; kas2 01:45 BP 113 / 63 (auto/); kas2 01:45 Pulse 87 MON; Pulse Ox 99% ; kas2 02:00 BP 110 / 59 (auto/); kas2 02:00 Pulse 89 MON; Pulse Ox 99% ; kas2 02:15 BP 104 / 59 (auto/); kas2 02:15 Pulse 89 MON; Pulse Ox 98% ; kas2 02:30 BP 102 / 58 (auto/); kas2 02:30 Pulse 87 MON; Pulse Ox 99% ; kas2 02:45 BP 102 / 55 (auto/); kas2 02:45 Pulse 85 MON; Pulse Ox 99% ; kas2 03:00 BP 101 / 58 (auto/); kas2 03:00 Pulse 86 MON; Pulse Ox 99% ; kas2 03:15 BP 106 / 55 (auto/); kas2 03:15 Pulse 85 MON; Pulse Ox 99% ; kas2 03:26 Resp 18; Temp 98.2(O); kas2 03:30 BP 116 / 64 (auto/); kas2 03:30 Pulse 83 MON; Pulse Ox 99% ; kas2 03:30 Resp 18; Temp 97.6(O); Pulse Ox 99% ; kas2 03:45 BP 116 / 51 (auto/); kas2 03:45 Pulse 80 MON; Pulse Ox 100% ; kas2 04:00 BP 117 / 60 (auto/); kas2 04:00 Pulse 86 MON; Pulse Ox 100% ; kas2 04:15 BP 112 / 55 (auto/); kas2 04:15 Pulse 88 MON; Pulse Ox 99% ; kas2 04:30 BP 128 / 63 (auto/); kas2 04:30 Pulse 89 MON; Pulse Ox 99% ; kas2 04:30 Resp 20; Temp 98.0(O); kas2 04:45 BP 106 / 56 (auto/); kas2 04:45 Pulse 83 MON; Pulse Ox 100% ; kas2 05:00 BP 103 / 63 (auto/); kas2 05:00 Pulse 85 MON; Pulse Ox 99% ; [facility] 05:15 BP 122 / 57 (auto/); kas2 05:15 Pulse 85 MON; Pulse Ox 99% ; [facility] 10/06 16:03 BP 114 / 64; Pulse 86; Resp 18; Temp 98.7(O); Pulse Ox 96% on R/A; dy 10/05 00:00 Body Mass Index 37.36 (101.83 kg, 165.10 cm) [facility] MDM: 10/05 00:12 Consult PFS/PSA/Corporate Strategy Analyst ordered. cs11 00:12 Consult PFS/PSA/Corporate Strategy Analyst: Patient's case requires discussion with on-call cs11 Psychiatrist ordered. 00:12 PSA/PFS to call Nursing Shank Boner, to enter patient data on [place] Safe [place] if patient cs11 involuntarily admitted or transferred for SI or HI ordered. 00:12 Confirm accurate psychiatric medication list and times of last dosage ordered. cs11 00:12 Detain Pt Until Medically/PFS Cleared ordered. cs11 00:12 Bernardo ordered. cs11 00:12 naloxone 4 mg IVP once ordered. cs11 00:13 Acetaminophen Level Ordered. EDMS 00:13 Basic Metabolic Profile Ordered. EDMS 00:13 Complete Blood Count Ordered. EDMS 00:13 Drug Eval Toxicology ED Only Ordered. EDMS 00:13 Ethyl Alcohol (ethanol) Ordered. EDMS 00:13 Liver Profile Ordered. EDMS 00:13 Salicylate Level Ordered. EDMS 00:13 ECG WITH READING ER PHYS+CARDIAG ordered. EDMS 00:21 CT Head Without Contrast Ordered. EDMS 00:58 Fingerstick Blood Sugar Reviewed. cs11 00:58 Drug Eval Toxicology ED Only Reviewed. cs11 00:58 Complete Blood Count Reviewed. cs11 01:10 Acetaminophen Level Reviewed. cs11 01:10 Basic Metabolic Profile Reviewed. cs11 01:10 Liver Profile Reviewed. cs11 01:10 Salicylate Level Reviewed. cs11 01:10 Ethyl Alcohol (ethanol) Reviewed. cs11 01:18 Call Respiratory ordered. cs11 01:19 -Arterial Blood Gas Ordered. EDMS 01:19 Ammonia (Little Green Tube on Ice, Not Pea Green) Ordered. EDMS 01:39 Call Respiratory complete. kas2 01:45 THYROID PROFILE Ordered. EDMS 02:12 Acetaminophen Level Reviewed. cs11 02:12 Basic Metabolic Profile Reviewed. cs11 02:12 Liver Profile Reviewed. cs11 02:12 Salicylate Level Reviewed. cs11 02:12 -Arterial Blood Gas Reviewed. cs11 02:12 Ammonia (Little Green Tube on Ice, Not Pea Green) Reviewed. cs11 02:12 THYROID PROFILE Reviewed. cs11 02:12 Ethyl Alcohol (ethanol) Reviewed. cs11 02:12 CT Head Without Contrast Reviewed. cs11 02:14 BED REQUEST+ADM ordered. EDMS 02:43 Consult PFS/PSA/Corporate Strategy Analyst: Patient's case requires discussion with on-call cl Psychiatrist complete. 02:43 Consult PFS/PSA/Corporate Strategy Analyst complete. cl 02:43 PSA/PFS to call Nursing Shank Boner, to enter patient data on [place] Safe Act if patient cl involuntarily admitted or transferred for SI or HI complete. 02:59 COMPLETE COMPHRENSIVE METABOLI Ordered. EDMS 03:00 CBC WITH DIFFERENTIAL Ordered. EDMS 03:01 Admission / Observation Status ordered. EDMS 03:09 Financial registration complete. pm4 03:30 [facility] Payment Agreement was scanned into [employer] and attached to record. pm4 07:48 T-Sheet-- Draft Copy was scanned into [employer] and attached to record. seh 08:18 HCG, SERUM QUANTITATIVE Ordered. EDMS 08:18 VENOUS BLOOD GAS Ordered. EDMS 11:24 REGULAR DIET PED PLASTIC WEEKS ordered. EDMS 19:31 CBC WITH DIFFERENTIAL Ordered. EDMS 19:32 BASIC METABOLIC PROFILE Ordered. EDMS 01 08:53 ELECTROCARDIOGRAM ADULT ordered. EDMS 10:34 ECHOCARD,DOPPLER/COLOR FLOW ordered. EDMS 10/07 13:46 ECG/EKG was scanned into [employer] and attached to record. gb Administered Medications: 10/04 23:57 Drug: naloxone 4 mg [naloxone 1 mg/mL injection syringe (4 mL)] Route: IVP; Site: right kas2 wrist; Critical Care Time: 10/05 02:33 Critical care time: Bedside Care: 120 minutes. Total time: 120 minutes cs11 Signatures: Dispatcher [employer] EDMS Davian Quintana, PSA PSA cl Amparo Callahan, Reg Reg gb Mason Harding, RN RN Cj Borja, DO cs11 Evelia Marques,RN RN aa3 Mitali PerezRN RN [facility] Kristina Man [facility] Jose Francisco Hargrove, Reg Reg pm4 The chart was reviewed and I authenticate all verbal orders and agree with the evaluation and treatment provided.Corrections: (The following items were deleted from the chart) 01:45 00:13 THYROID STIMULATING HORMONE+LAB ordered. EDMS EDMS :45 01:10 THYROID STIMULATING HORMONE+LAB reviewed. cs11 EDMS 01:45 01:19 THYROID PROFILE+LAB ordered. EDMS EDMS 11:23 03:01 NPO DIET ordered. EDMS EDMS Attachments: 03:30 [facility] Payment Agreement pm4 07:48 T-Sheet-- Draft Copy [facility] 10/07 13:46 ECG/EKG gb Chart Complete [facility]
--- NOTE | 2016-10-08 17:16 | EDDOCDS ---
Nurse's Notes [facility] Name: Homero Kline Age: 40 yrs Sex: Female : 1975 Arrival Date: 10/04/2016 Time: 23:47 Bed Admit Hold Private MD: Antione Murphy Diagnosis: Other psychoactive substance abuse with intoxication Presentation: 10/04 23:52 Presenting complaint: EMS states: People at [facility] heard a thump and went to investigate [facility] and found patient on floor attempting to sit up. Last known well at 1999 when she went to get her meds. EMS found her still on floor altered, responsive to verbal. [facility] fire saw tampons, two loaded syringes an empty syringe, a sales and service officer and a spoon on the bed. EMS gave narcan 4mg IV with small response. Pupils constricted. Adult Sepsis Screening: Patient has new or worsening altered mentation (1 point). Patient's respiratory rate is less than 22. Systolic blood pressure is greater than 100. Patient has a qSOFA score of 0- Negative Sepsis Screen. Suicide/Homicide risk assessment- Unable to assess, the patient has an altered level of consciousness. 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 Transition of care: patient was not received from another setting of care. 23:52 Acuity: YVONNE Level 2 [facility] 23:52 Method Of Arrival: Ambulance [facility] Triage Assessment: 23:57 General: Appears. [facility] 10/05 00:00 General: Appears obtunded. Behavior is uncooperative. Pain: Unable to use pain scale. [facility] Patient is unresponsive. Pt Declines HIV testing. Neurological: Level of Consciousness is obtunded, Pupils are PERRLA. Cardiovascular: Rhythm is sinus tachycardia No ectopy. Respiratory: Airway is patent Respiratory effort is shallow, Respiratory pattern is regular. GI: Abdomen is obese. Derm: Skin is intact, Skin is dry, Skin is pink, warm & dry. Skin temperature is. Injury Description: No known injury. Historical: - Allergies: Ibuprofen; SULFA (SULFONAMIDES); - Home Meds: 1. fentanyl patches Unknown 2. Vicodin 5-300 mg Oral tab 1 tab twice a day for Pain 3. Xanax 2 mg Oral tab 1 tab 3 times per day for Anxiety - PMHx: Anxiety; Chronic Neck Pain; Hypertension; - PSHx: Unable to obtain; - Social history: Smoking status: unknown if patient ever smoked tobacco. patient unresponsive. - : Unable to assess if pt is on anticoagulants. Unable to Verify Home Med List with the patient / caregiver. - Exposure Risk Screening:: Unable to Assess. Assessment: 00:08 General: See triage note.. kas2 00:29 General: Behavior is agitated, drowsy, restless, uncooperative. Pain: Unable to use kas2 pain scale. Patient is disoriented. Neurological: Level of Consciousness is lethargic, Oriented to person. Cardiovascular: Capillary refill < 3 seconds Heart tones S1 S2 present Rhythm is sinus tachycardia No ectopy. Respiratory: Airway is patent Respiratory effort is even, unlabored, Respiratory pattern is regular, symmetrical, Breath sounds are clear bilaterally. 01:00 General: Patient gone to CT scan via stretcher with tech.. kas2 01:18 General: Patient back from CT scan via stretcher with tech. Resettled in bed. No kas2 apparent distress. Patient responds to painful stimuli. Appears comfortable. Will continue to monitor at this time.. 02:10 General: Patient sleeping at this time. No apparent distress noted. Appears kas2 comfortable. VSS. Call macdonald within reach. Will continue to monitor.. 03:22 General: Appears in no apparent distress, comfortable, well nourished, well groomed, to kas2 be sleeping. Behavior is drowsy. Pain: Unable to use pain scale. Patient is disoriented. Neurological: Level of Consciousness is lethargic, Oriented to person. Cardiovascular: Capillary refill < 3 seconds Heart tones S1 S2 present Rhythm is sinus tachycardia No ectopy. Respiratory: Airway is patent Respiratory effort is even, unlabored, Respiratory pattern is regular, symmetrical, Breath sounds are clear bilaterally. Derm: Skin is intact, is healthy with good turgor, Skin is dry, Skin is pink, warm & dry. Skin temperature is warm. 04:35 General: Patient sleeping at this time with no apparent distress noted. Appears kas2 comfortable. Responds to name only. Garbled speech. VSS. Airway patent. Respiratory pattern even and unlabored. Will continue to monitor.. 05:16 General: Verbal report given to Mitali Carranza RN. . kas2 07:08 Cardiovascular: Rhythm is sinus rhythm No ectopy. pt care by admission nurse Milo Delaney. pml Vital Signs: 10/04 23:54 BP 119 / 65 (auto/); kas2 23:56 Pulse 113 MON; Pulse Ox 94% ; 10/05 00:00 BP 119 / 65; Pulse 116; Resp 18; Pulse Ox 100% on Non-rebreather mask; Weight 101.83 kas2 kg; Height 5 ft. 5 in. (165.10 cm); 00:00 BP 123 / 71 (auto/); kas2 00:00 Pulse 108 MON; Pulse Ox 90% ; kas2 00:15 BP 122 / 57 (auto/); kas2 00:15 Pulse 106 MON; Pulse Ox 98% ; kas2 00:30 BP 113 / 54 (auto/); kas2 00:30 Pulse 106 MON; kas2 00:36 BP 121 / 64 (auto/); kas2 00:36 Pulse 108 MON; Pulse Ox 99% ; kas2 00:45 BP 109 / 55 (auto/); kas2 00:45 Pulse 102 MON; Pulse Ox 98% ; kas2 00:51 Pulse 101 MON; Pulse Ox 98% ; kas2 01:00 BP 128 / 60 (auto/); kas2 01:15 BP 105 / 57 (auto/); kas2 01:15 Pulse 94 MON; Pulse Ox 99% ; kas2 01:30 BP 106 / 56 (auto/); kas2 01:30 Pulse 89 MON; Pulse Ox 98% ; kas2 01:42 BP 108 / 64 (auto/); kas2 01:42 Pulse 85 MON; Pulse Ox 100% ; kas2 01:45 BP 113 / 63 (auto/); kas2 01:45 Pulse 87 MON; Pulse Ox 99% ; kas2 02:00 BP 110 / 59 (auto/); kas2 02:00 Pulse 89 MON; Pulse Ox 99% ; kas2 02:15 BP 104 / 59 (auto/); kas2 02:15 Pulse 89 MON; Pulse Ox 98% ; kas2 02:30 BP 102 / 58 (auto/); kas2 02:30 Pulse 87 MON; Pulse Ox 99% ; kas2 02:45 BP 102 / 55 (auto/); kas2 02:45 Pulse 85 MON; Pulse Ox 99% ; kas2 03:00 BP 101 / 58 (auto/); kas2 03:00 Pulse 86 MON; Pulse Ox 99% ; kas2 03:15 BP 106 / 55 (auto/); kas2 03:15 Pulse 85 MON; Pulse Ox 99% ; kas2 03:26 Resp 18; Temp 98.2(O); kas2 03:30 BP 116 / 64 (auto/); kas2 03:30 Pulse 83 MON; Pulse Ox 99% ; kas2 03:30 Resp 18; Temp 97.6(O); Pulse Ox 99% ; kas2 03:45 BP 116 / 51 (auto/); kas2 03:45 Pulse 80 MON; Pulse Ox 100% ; kas2 04:00 BP 117 / 60 (auto/); kas2 04:00 Pulse 86 MON; Pulse Ox 100% ; kas2 04:15 BP 112 / 55 (auto/); kas2 04:15 Pulse 88 MON; Pulse Ox 99% ; kas2 04:30 BP 128 / 63 (auto/); kas2 04:30 Pulse 89 MON; Pulse Ox 99% ; kas2 04:30 Resp 20; Temp 98.0(O); kas2 04:45 BP 106 / 56 (auto/); kas2 04:45 Pulse 83 MON; Pulse Ox 100% ; kas2 05:00 BP 103 / 63 (auto/); kas2 05:00 Pulse 85 MON; Pulse Ox 99% ; [facility] 05:15 BP 122 / 57 (auto/); [facility] 05:15 Pulse 85 MON; Pulse Ox 99% ; [facility] 10/06 16:03 BP 114 / 64; Pulse 86; Resp 18; Temp 98.7(O); Pulse Ox 96% on R/A; dy 10/05 00:00 Body Mass Index 37.36 (101.83 kg, 165.10 cm) [facility] Vitals: 10/05 00:00 Log In Time N/A - ambulance arrival. [facility] ED Course: 10/04 23:48 Patient visited by Brooklynn Barlow PCA. tmm1 23:48 Antione Murphy is Private Physician. tmm1 23:48 Patient moved to Waiting tmm1 23:49 Kenn Stroud, RN is Primary Nurse. tmm1 23:49 Mitali Perez,CHANTEL is Primary Nurse. tmm1 23:49 Barbie Hart DO is Attending Physician. cs11 23:49 Patient visited by Barbie Hart DO. cs11 23:49 Patient moved to 3 tmm1 23:50 O2 via non-rebreather \T\ 15L/min. kas2 23:50 O2 via nasal cannula \T\ 6L/min. kas2 23:56 Triage Initiated kas2 10/05 00:05 Patient visited by Genet Ennis RN. af2 00:09 Patient visited by Mitali Perez RN. kas2 00:27 associate chemist on. Pulse ox on. NIBP on. kas2 00:27 Inserted saline lock: 20 gauge in right antecubital area and blood collected. The kas2 patient tolerated the procedure well. No procedures done that require assistance. 00:28 Bernardo cath inserted 16 Fr. Balloon inflated. To gravity drainage. Urine specimen kas2 collected. returned clear yellow urine. Bernardo cath flushed w/ 10 cc NS Patient tolerated well. 00:29 Salicylate Level Sent. kas2 00:29 Liver Profile Sent. kas2 00:29 Ethyl Alcohol (ethanol) Sent. kas2 00:29 Drug Eval Toxicology ED Only Sent. kas2 00:29 Acetaminophen Level Sent. kas2 00:29 Basic Metabolic Profile Sent. kas2 00:29 Complete Blood Count Sent. kas2 00:30 Patient visited by Mitali Perez RN. kas2 00:40 EKG done. (by ED staff). Reviewed by Barbie Hart DO. jlm 00:41 Patient visited by Anastasia Hatfield, Clay Miner. jlm 00:51 Patient visited by Mitali Perez RN. kas2 01:39 Ammonia (Little Green Tube on Ice, Not Pea Green) Sent. kas2 01:42 -Arterial Blood Gas Sent. jc3 01:42 CT Head Without Contrast Returned. EDMS 01:55 Patient visited by Mitali Perez RN. kas2 02:25 Primary Nurse role handed off by Kenn Stroud RN kmg1 02:30 Jaqueline Chiu is Hospitalizing Provider. cs11 02:31 Patient visited by Mitali Perez RN. kas2 03:26 Patient visited by Mitali Perez RN. kas2 03:30 [facility] Payment Agreement was scanned into [employer] and attached to record. pm4 04:18 Patient visited by Mitali Perez RN. kas2 04:31 Patient moved to Admit Hold tmm1 05:17 Patient visited by Mitali Perez RN. kas2 07:08 Patient visited by Dianelys Griffin RN. pml 07:09 Primary Nurse role handed off by Mitali Perez RN deg 07:48 T-Sheet-- Draft Copy was scanned into [employer] and attached to record. seh 09:25 Patient moved to 20 deg 15:06 Patient moved to Admit Hold dy 10/06 07:25 EKG-ADULT Returned. EDMS 14:25 ELECTROCARDIOGRAM ADULT Returned. EDMS 10/07 13:46 ECG/EKG was scanned into [employer] and attached to record. gb Administered Medications: 10/04 23:57 Drug: naloxone 4 mg [naloxone 1 mg/mL injection syringe (4 mL)] Route: IVP; Site: right kas2 wrist; RT: 10/05 01:42 ABG's drawn from right radial artery pressure held for 5 minutes no bleeding noted jc3 pressure bandage applied specimen sent pt. tolerated well. Order Results: Lab Order: Fingerstick Blood Sugar; SPEC'M 10/05/16 00:01 Test: BEDSIDE GLUCOSE; Value: 108; Range: 70-105; Abnormal: Above high normal; Units: MG/DL; Status: F Lab Order: Acetaminophen Level; SPEC'M 10/05/16 00:18 Test: ACETAMINOPHEN LEVEL; Value: < 2.0; Range: 10.0-30.0; Abnormal: Below low normal; Units: UG/ML; Status: F Lab Order: Basic Metabolic Profile; SPEC'M 10/05/16 00:18 Test: GLUCOSE, FASTING; Value: 113; Range: 70-105; Abnormal: Above high normal; Units: MG/DL; Status: F Test: BLOOD UREA NITROGEN; Value: 19; Range: 7-18; Abnormal: Above high normal; Units: MG/DL; Status: F Test: CREATININE FOR GFR; Value: 0.92; Range: 0.55-1.02; Units: MG/DL; Status: F Test: GLOMERULAR FILTRATION RATE; Value: > 60.0; Range: >58; Status: F Test: SODIUM LEVEL; Value: 141; Range: 136-145; Units: MEQ/L; Status: F Test: POTASSIUM SERUM; Value: 4.1; Range: 3.5-5.1; Units: MEQ/L; Status: F Test: CHLORIDE LEVEL; Value: 105; Range: 98-107; Units: MEQ/L; Status: F Test: CARBON DIOXIDE LEVEL; Value: 28; Range: 21-32; Units: MEQ/L; Status: F Test: ANION GAP; Value: 8; Range: 8-16; Units: MEQ/L; Status: F Test: CALCIUM LEVEL; Value: 8.8; Range: 8.5-10.1; Units: MG/DL; Status: F Test Note: ; Units are mL/min/1.73 m2 Chronic Kidney Disease Staging per NKF: Stage I & II GFR >=60 Normal to Mildly Decreased Stage III GFR 30-59 Moderately Decreased Stage IV GFR 15-29 Severely Decreased Stage V GFR <15 Very Little GFR Left ESRD GFR <15 on 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 Lab Order: Complete Blood Count; SPEC'M 10/05/16 00:18 Test: WHITE BLOOD COUNT; Value: 7.8; Range: 4.0-10.0; Units: K/mm3; Status: F Test: RED BLOOD COUNT; Value: 4.22; Range: 4.00-5.40; Units: M/mm3; Status: F Test: HEMOGLOBIN; Value: 12.7; Range: 12.0-16.0; Units: g/dl; Status: F Test: HEMATOCRIT; Value: 38.2; Range: 36.0-47.0; Units: %; Status: F Test: MEAN CORPUSCULAR VOLUME; Value: 90.4; Range: 80.0-96.0; Units: fl; Status: F Test: MEAN CORPUSCULAR HEMOGLOBIN; Value: 30.1; Range: 27.0-33.0; Units: pg; Status: F Test: MEAN CORPUSCULAR HGB CONC; Value: 33.3; Range: 32.0-36.5; Units: g/dl; Status: F Test: RED CELL DISTRIBUTION WIDTH; Value: 14.0; Range: 11.5-14.5; Units: %; Status: F Test: PLATELET COUNT, AUTOMATED; Value: 227; Range: 150-450; Units: k/mm3; Status: F Lab Order: Drug Eval Toxicology ED Only; SPEC'M 10/05/16 00:18 Test: AMPHETAMINES LEVEL URINE; Value: NEGATIVE; Range: NEGATIVE; Status: F Test: BARBITURATES URINE; Value: NEGATIVE; Range: NEGATIVE; Status: F Test: BENZODIAZEPINES URINE; Value: POSITIVE; Range: NEGATIVE; Abnormal: Above high normal; Status: F Test: CANNABINOIDS URINE; Value: NEGATIVE; Range: NEGATIVE; Status: F Test: COCAINE METABOLITE URINE; Value: NEGATIVE; Range: NEGATIVE; Status: F Test: METHADONE URINE; Value: NEGATIVE; Range: NEGATIVE; Status: F Test: OPIATES URINE; Value: NEGATIVE; Range: NEGATIVE; Status: F Test: TRICYCLIC ANTIDEPRESS URINE; Value: POSITIVE; Range: NEGATIVE; Abnormal: Above high normal; Status: F Test Note: ; ALL PRESUMPTIVE POSITIVE FINDINGS ARE UNCONFIRMED NORMAL VALUES THRESHOLD IN NG/ML AMPHETAMINES 1000 METHAMPHETAMINES 1000 BARBITURATES 300 BENZODIAZEPINES 300 CANNABINOIDS (THC) 50 COCAINE METABOLITE 300 METHADONE 300 OPIATES 300 PHENCYCLIDINE 25 TRICYCLIC ANTIDEPRESSANTS 1000 RESULTS ARE FOR MEDICAL PURPOSES ONLY. ALL URINE SPECIMENS WILL BE SAVED FOR 3 DAYS. IF CONFIRMATION OF A PRESUMPTIVE POSTIVE SCREEN RESULT IS DESIRED, CALL CHEMISTRY ([phone]) AND REQUEST URINE TO BE SENT TO REFERENCE LAB. FOR A LIST OF CLOSELY RELATED COMPOUNDS PLEASE CALL THE LAB. Lab Order: Ethyl Alcohol (ethanol); SPEC'M 10/05/16 00:18 Test: ETHYL ALCOHOL (ETHANOL); Value: 0.003; Range: 0.000-0.010; Units: %; Status: F Lab Order: Liver Profile; SPEC'M 10/05/16 00:18 Test: AST/SGOT; Value: 92; Range: 15-37; Abnormal: Above high normal; Units: U/L; Status: F Test: ALT/SGPT; Value: 210; Range: 12-78; Abnormal: Above high normal; Units: U/L; Status: F Test: ALKALINE PHOSPHATASE; Value: 105; Range: 45-117; Units: U/L; Status: F Test: BILIRUBIN,TOTAL; Value: 0.3; Range: 0.2-1.0; Units: MG/DL; Status: F Test: BILIRUBIN,DIRECT; Value: 0.1; Range: 0.0-0.2; Units: MG/DL; Status: F Test: TOTAL PROTEIN; Value: 6.8; Range: 6.4-8.2; Units: GM/DL; Status: F Test: ALBUMIN; Value: 3.5; Range: 3.2-5.2; Units: GM/DL; Status: F Test: ALBUMIN/GLOBULIN RATIO; Value: 1.06; Range: 1.00-1.93; Status: F Lab Order: Salicylate Level; 10/05/16 00:18 Test: SALICYLATE LEVEL; Value: 1.8; Range: 5.0-30.0; Abnormal: Below low normal; Units: MG/DL; Status: F Lab Order: -Arterial Blood Gas; 10/05/16 01:41 Test: ABG pH (ARTERIAL); Value: 7.383; Range: 7.350-7.450; Units: UNITS; Status: F Test: ABG PARTIAL PRESSURE CO2; Value: 44.4; Range: 35.0-45.0; Units: mmHg; Status: F Test: ABG PARTIAL PRESSURE O2; Value: 144.7; Range: 75.0-100.0; Abnormal: Above high normal; Units: mmHg; Status: F Test: ABG TOTAL CO2; Value: 27.2; Range: 22.0-29.0; Units: MEQ/L; Status: F Test: ABG HCO3; Value: 25.9; Range: 22.0-26.0; Units: MEQ/L; Status: F Test: ABG BASE EXCESS; Value: 0.5; Range: -2.0-2.0; Status: F Test: ABG STANDARD HCO3; Value: 25.0; Range: 22.0-26.0; Units: MEQ/L; Status: F Test: ABG O2 SATURATION; Value: 99.2; Range: 95.0-99.0; Abnormal: Above high normal; Units: %; Status: F Test: ABG DEVICE; Value: NASAL PORFIRIO; Status: F Lab Order: Ammonia (Little [place] Tube on Ice, Not Pea Green); 10/05/16 01:37 Test: AMMONIA; Value: 67; Range: <32; Abnormal: Above high normal; Units: uMOL/L; Status: F Lab Order: THYROID PROFILE; 10/05/16 00:18 Test: T UPTAKE; Value: 28; Range: 30-39; Abnormal: Below low normal; Units: %; Status: F Test: THYROXINE (T4); Value: 10.1; Range: 4.5-12.0; Units: UG/DL; Status: F Test: FREE THYROXINE INDEX; Value: 2.8; Range: 1.3-4.8; Units: %; Status: F Test: THYROID STIMULATING HORMONE; Value: 5.870; Range: 0.358-3.740; Abnormal: Above high normal; Units: uIU/ML; Status: F Lab Order: COMPLETE COMPHRENSIVE METABOLI; SPEC'M 10/05/16 07:21 Test: GLUCOSE, FASTING; Value: 111; Range: 70-105; Abnormal: Above high normal; Units: MG/DL; Status: F Test: BLOOD UREA NITROGEN; Value: 17; Range: 7-18; Units: MG/DL; Status: F Test: CREATININE FOR GFR; Value: 0.83; Range: 0.55-1.02; Units: MG/DL; Status: F Test: GLOMERULAR FILTRATION RATE; Value: > 60.0; Range: >58; Status: F Test: SODIUM LEVEL; Value: 145; Range: 136-145; Units: MEQ/L; Status: F Test: POTASSIUM SERUM; Value: 4.4; Range: 3.5-5.1; Units: MEQ/L; Status: F Test: CHLORIDE LEVEL; Value: 110; Range: 98-107; Abnormal: Above high normal; Units: MEQ/L; Status: F Test: CARBON DIOXIDE LEVEL; Value: 28; Range: 21-32; Units: MEQ/L; Status: F Test: ANION GAP; Value: 7; Range: 8-16; Abnormal: Below low normal; Units: MEQ/L; Status: F Test: CALCIUM LEVEL; Value: 8.9; Range: 8.5-10.1; Units: MG/DL; Status: F Test: AST/SGOT; Value: 83; Range: 15-37; Abnormal: Above high normal; Units: U/L; Status: F Test: ALT/SGPT; Value: 203; Range: 12-78; Abnormal: Above high normal; Units: U/L; Status: F Test: ALKALINE PHOSPHATASE; Value: 101; Range: 45-117; Units: U/L; Status: F Test: BILIRUBIN,TOTAL; Value: 0.3; Range: 0.2-1.0; Units: MG/DL; Status: F Test: TOTAL PROTEIN; Value: 6.9; Range: 6.4-8.2; Units: GM/DL; Status: F Test: ALBUMIN; Value: 3.3; Range: 3.2-5.2; Units: GM/DL; Status: F Test: ALBUMIN/GLOBULIN RATIO; Value: 0.92; Range: 1.00-1.93; Abnormal: Below low normal; Status: F Test Note: ; Units are mL/min/1.73 m2 Chronic Kidney Disease Staging per NKF: Stage I & II GFR >=60 Normal to Mildly Decreased Stage III GFR 30-59 Moderately Decreased Stage IV GFR 15-29 Severely Decreased Stage V GFR <15 Very Little GFR Left ESRD GFR <15 on 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 Lab Order: CBC WITH DIFFERENTIAL; SPEC'M 10/05/16 07:21 Test: WHITE BLOOD COUNT; Value: 8.5; Range: 4.0-10.0; Units: K/mm3; Status: F Test: RED BLOOD COUNT; Value: 4.24; Range: 4.00-5.40; Units: M/mm3; Status: F Test: HEMOGLOBIN; Value: 12.5; Range: 12.0-16.0; Units: g/dl; Status: F Test: HEMATOCRIT; Value: 38.9; Range: 36.0-47.0; Units: %; Status: F Test: MEAN CORPUSCULAR VOLUME; Value: 91.7; Range: 80.0-96.0; Units: fl; Status: F Test: MEAN CORPUSCULAR HEMOGLOBIN; Value: 29.6; Range: 27.0-33.0; Units: pg; Status: F Test: MEAN CORPUSCULAR HGB CONC; Value: 32.3; Range: 32.0-36.5; Units: g/dl; Status: F Test: RED CELL DISTRIBUTION WIDTH; Value: 14.0; Range: 11.5-14.5; Units: %; Status: F Test: PLATELET COUNT, AUTOMATED; Value: 206; Range: 150-450; Units: k/mm3; Status: F Test: NEUTROPHILS %; Value: 73.1; Range: 36.0-66.0; Abnormal: Above high normal; Units: %; Status: F Test: LYMPH %; Value: 15.8; Range: 24.0-44.0; Abnormal: Below low normal; Units: %; Status: F Test: MONO %; Value: 3.7; Range: 0.0-5.0; Units: %; Status: F Test: EOS %; Value: 3.2; Range: 0.0-3.0; Abnormal: Above high normal; Units: %; Status: F Test: BASO %; Value: 2.6; Range: 0.0-1.0; Abnormal: Above high normal; Units: %; Status: F Test: LARGE UNSTAINED CELL %; Value: 1.5; Range: 0.0-4.0; Units: %; Status: F Test: NEUTROPHILS #; Value: 6.2; Range: 1.8-7.7; Units: K/mm3; Status: F Test: LYMPH #; Value: 1.5; Range: 1.5-4.5; Units: K/mm3; Status: F Test: MONO #; Value: 0.3; Range: 0.0-0.8; Units: K/mm3; Status: F Test: EOS #; Value: 0.3; Range: 0.0-0.50; Units: K/mm3; Status: F Test: BASO #; Value: 0.2; Range: 0.0-0.2; Units: K/mm3; Status: F Test: LARGE UNSTAINED CELL #; Value: 0.1; Range: 0.0-0.4; Units: K/mm3; Status: F Lab Order: HCG, SERUM QUANTITATIVE; SPEC'M 10/05/16 08:33 Test: HCG, SERUM QUANTITATIVE; Value: < 1.0; Units: MIU/ML; Status: F Test Note: ; GESTATIONAL AGE APPROXIMATE HCG RANGE (MIU/ML) 0.2-1 WEEK 5-50 1-2 WEEKS 50-500 2-3 WEEKS 100-5,000 3-4 WEEKS 500-10,000 4-5 WEEKS 1,000-50,000 5-6 WEEKS 10,000-100,000 6-8 WEEKS 15,000-200,000 2-3 MONTHS 10,000-100,000 NON FEMALES LESS THAN 3.0 Patient samples may contain human heterophilic antibodies that could react with immunoassays to give falsely elevated or depressed results. This assay has been designed to minimize interference from heterophilic antibodies. Elevated hCG levels have also been associated with trophoblastic disease and nontrophoblastic neoplasms. The possibility of having these diseases should be considered before a diagnosis of is made. This test is not intended for use as a surrogate marker for aiding in the diagnosis or monitoring the treatment of cancer patients. Siemens XING methodology. Lab Order: VENOUS BLOOD GAS; SPEC'M 10/05/16 08:33 Test: VENOUS PH; Value: 7.363; Range: 7.330-7.430; Units: UNITS; Status: F Test: VENOUS PARTIAL PRESSURE CO2; Value: 50.0; Range: 38.0-50.0; Units: mmHg; Status: F Test: VENOUS PARTIAL PRESSURE O2; Value: 68.9; Range: 30.0-50.0; Abnormal: Above high normal; Units: mmHg; Status: F Test: VENOUS TOTAL CO2; Value: 29.3; Range: 24.0-28.0; Abnormal: Above high normal; Units: MEQ/L; Status: F Test: VENOUS HCO3; Value: 27.8; Range: 23.0-27.0; Abnormal: Above high normal; Units: MEQ/L; Status: F Test: VENOUS BASE EXCESS; Value: 1.6; Range: -2.0-2.0; Status: F Test: VENOUS STANDARD HCO3; Value: 25.8; Units: MEQ/L; Status: F Test: VENOUS O2 SATURATION; Value: 94.4; Range: 60.0-80.0; Abnormal: Above high normal; Units: %; Status: F Lab Order: CBC WITH DIFFERENTIAL; SPEC'M 10/06/16 06:35 Test: WHITE BLOOD COUNT; Value: 6.6; Range: 4.0-10.0; Units: K/mm3; Status: F Test: RED BLOOD COUNT; Value: 4.15; Range: 4.00-5.40; Units: M/mm3; Status: F Test: HEMOGLOBIN; Value: 12.5; Range: 12.0-16.0; Units: g/dl; Status: F Test: HEMATOCRIT; Value: 38.6; Range: 36.0-47.0; Units: %; Status: F Test: MEAN CORPUSCULAR VOLUME; Value: 93.2; Range: 80.0-96.0; Units: fl; Status: F Test: MEAN CORPUSCULAR HEMOGLOBIN; Value: 30.2; Range: 27.0-33.0; Units: pg; Status: F Test: MEAN CORPUSCULAR HGB CONC; Value: 32.4; Range: 32.0-36.5; Units: g/dl; Status: F Test: RED CELL DISTRIBUTION WIDTH; Value: 13.1; Range: 11.5-14.5; Units: %; Status: F Test: PLATELET COUNT, AUTOMATED; Value: 207; Range: 150-450; Units: k/mm3; Status: F Test: NEUTROPHILS %; Value: 62.6; Range: 36.0-66.0; Units: %; Status: F Test: LYMPH %; Value: 26.2; Range: 24.0-44.0; Units: %; Status: F Test: MONO %; Value: 4.2; Range: 0.0-5.0; Units: %; Status: F Test: EOS %; Value: 4.3; Range: 0.0-3.0; Abnormal: Above high normal; Units: %; Status: F Test: BASO %; Value: 0.7; Range: 0.0-1.0; Units: %; Status: F Test: LARGE UNSTAINED CELL %; Value: 1.9; Range: 0.0-4.0; Units: %; Status: F Test: NEUTROPHILS #; Value: 4.1; Range: 1.8-7.7; Units: K/mm3; Status: F Test: LYMPH #; Value: 1.7; Range: 1.5-4.5; Units: K/mm3; Status: F Test: MONO #; Value: 0.3; Range: 0.0-0.8; Units: K/mm3; Status: F Test: EOS #; Value: 0.3; Range: 0.0-0.50; Units: K/mm3; Status: F Test: BASO #; Value: 0.0; Range: 0.0-0.2; Units: K/mm3; Status: F Test: LARGE UNSTAINED CELL #; Value: 0.1; Range: 0.0-0.4; Units: K/mm3; Status: F Lab Order: BASIC METABOLIC PROFILE; [facility] 10/06/16 06:35 Test: GLUCOSE, FASTING; Value: 94; Range: 70-105; Units: MG/DL; Status: F Test: BLOOD UREA NITROGEN; Value: 14; Range: 7-18; Units: MG/DL; Status: F Test: CREATININE FOR GFR; Value: 0.80; Range: 0.55-1.02; Units: MG/DL; Status: F Test: GLOMERULAR FILTRATION RATE; Value: > 60.0; Range: >58; Status: F Test: SODIUM LEVEL; Value: 143; Range: 136-145; Units: MEQ/L; Status: F Test: POTASSIUM SERUM; Value: 4.3; Range: 3.5-5.1; Units: MEQ/L; Status: F Test: CHLORIDE LEVEL; Value: 108; Range: 98-107; Abnormal: Above high normal; Units: MEQ/L; Status: F Test: CARBON DIOXIDE LEVEL; Value: 27; Range: 21-32; Units: MEQ/L; Status: F Test: ANION GAP; Value: 8; Range: 8-16; Units: MEQ/L; Status: F Test: CALCIUM LEVEL; Value: 8.3; Range: 8.5-10.1; Abnormal: Below low normal; Units: MG/DL; Status: F Test Note: ; Units are mL/min/1.73 m2 Chronic Kidney Disease Staging per NKF: Stage I & II GFR >=60 Normal to Mildly Decreased Stage III GFR 30-59 Moderately Decreased Stage IV GFR 15-29 Severely Decreased Stage V GFR <15 Very Little GFR Left ESRD GFR <15 on 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 Radiology Order: EKG-ADULT Test: EKG-ADULT REASON FOR EXAMINATION: overdose; Stationary ECG Study; [facility] - ED; ; Test Date: 2016-10-05; Pat Name: HOMERO TOPETEIOTTAZ Department:; Room: [place] [address]; Gender: F 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: hortensia; : 1975 Requested By: BARBIE HART; Order Number: [id number] Brandon MD: Kristina Davis; Measurements; Intervals [place]; Rate: 99 P: 53; OR: 170 QRS: 69; QRSD: 84 T: 25; QT: 353; QTc: 454; Interpretive Statements; SINUS RHYTHM; INCREASED RATE 12/07/13; Electronically Signed On 10-06-2016 7:20:50 EST by Kristina Davis; Radiology Order: CT Head Without Contrast Test: CT Head Without Contrast REASON FOR EXAMINATION: aloc; ; CLINICAL HISTORY: Altered level of consciousness.; TECHNIQUE: Multiple axial brain CT scan sections were obtained from base to vertex without contrast a; dministration.; COMMENTS:; The study shows normal configuration of sella turcica. There are no intra or extra-axial collections.; There is no mass effect or midline shift. There is no evidence of hematoma formation. No hydrocephal; us is present. 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 cs11 10/06 16:12 Discharge Assessment: Patient awake and alert. patient administered narcotics - no. The aa3 following High Risk Discharge criteria are identified:. Condition: good. CT Study completed. Admission hand-off: Report called to [facility]. Property :Personal belongings accompany Pt. 16:15 Patient left the ED. aa3 Signatures: Dispatcher [employer] EDMS Elisa Robertson, [employer] deg Dayana Blair, RN RN [id number] Amparo Callahan, Reg Reg gb Mason Harding, RN RN Donny Donato jc3 Dianelys Griffin,RN RN pml Barbie Hart, DO DO cs11 McLear, Brooklynn, PROFESSOR OF PATHOLOGY PROFESSOR OF PATHOLOGY tmm1 Evelia MarquesRN RN aa3 Anastasia Hatfield, [employer] jlm Genet EnnisRN RN af2 Mitali PerezRN RN kas2 Kristina Man Paul, Reg Reg pm4 Corrections: (The following items were deleted from the chart) 10/05 01:45 00:28 THYROID STIMULATING HORMONE+LAB sent. [facility] [place] 01:45 01:39 THYROID PROFILE+LAB sent. [facility] [place] Chart Complete MTDD
== END 2016-10-07 13:13 | disposition home or self-care (01) | DRG 812 ==
LOC: M ED 23:47 → M ED INP 10-05 03:05 → M MSPAV 10-06 16:23
PROVIDERS: ADMIT Internal Medicine Nephrology; ATTEND Internal Medicine
DX: T42.4X1A Poisoning by benzodiazepines, accidental (unintentional), initial encounter (principal); G92 Toxic encephalopathy; F41.9 Anxiety disorder, unspecified; M54.2 Cervicalgia; M54.5 Low back pain; I10 Essential (primary) hypertension; F17.210 Nicotine dependence, cigarettes, uncomplicated; Y92.193 Bedroom in other specified residential institution as the place of occurrence of the external cause; Z79.899 Other long term (current) drug therapy; Z79.891 Long term (current) use of opiate analgesic; R79.89 Other specified abnormal findings of blood chemistry; E11.21 Type 2 diabetes mellitus with diabetic nephropathy; F14.21 Cocaine dependence, in remission

== ENCOUNTER → 2016-11-11 | Outpatient (CLI) | payer OTHER ==
[~2016-11-11] MED LIST changes: +ALPR2TAB3 PO; +METO25TAB PO; +OLAN5TAB PO; +PROZ40CA PO
[2016-11-11 09:24] LABS: CONTROL LINE UCG INT CTR LINE PRESENT
[2016-11-11 09:48] LABS: ALBUMIN 3.9 GM/DL (3.2-5.2); ALBUMIN/GLOBULIN RATIO 1.18 (1.00-1.93); ALKALINE PHOSPHATASE 74 U/L (45-117); ALT/SGPT 203 U/L (12-78); ANION GAP 7 MEQ/L (8-16); AST/SGOT 102 U/L (15-37); BILIRUBIN,TOTAL 0.5 MG/DL (0.2-1.0); BLOOD UREA NITROGEN 21 MG/DL (7-18); CALCIUM LEVEL 9.2 MG/DL (8.5-10.1); CARBON DIOXIDE LEVEL 29 MEQ/L (21-32); CHLORIDE LEVEL 106 MEQ/L (98-107); CREATININE FOR GFR 0.88 MG/DL (0.55-1.02); GLOMERULAR FILTRATION RATE > 60.0 (>58); GLUCOSE, FASTING 80 MG/DL (70-105); POTASSIUM SERUM 4.3 MEQ/L (3.5-5.1); SODIUM LEVEL 142 MEQ/L (136-145); TOTAL PROTEIN 7.2 GM/DL (6.4-8.2)
[2016-11-11 09:59] LABS: MEAN CORPUSCULAR HEMOGLOBIN 30.4 pg (27.0-33.0); MEAN CORPUSCULAR HGB CONC 32.8 g/dl (32.0-36.5); MEAN CORPUSCULAR VOLUME 92.6 fl (80.0-96.0); RED CELL DISTRIBUTION WIDTH 13.6 % (11.5-14.5); WHITE BLOOD COUNT 8.1 K/mm3 (4.0-10.0)
[2016-11-11 10:57] LABS: CONTROL LINE INT CTR LINE PRESENT; HIV SCRN NEGATIVE (NEGATIVE); HIV SCRN1 NEGATIVE (NEGATIVE)
== END ==
LOC: M LAB 08:29
PROVIDERS: ATTEND Family Medicine
DX: F11.20 Opioid dependence, uncomplicated (principal)

== ENCOUNTER 2016-11-29 11:00 | Emergency (ER) | payer OTHER ==
[~2016-11-29] VITALS: Ht 170.2 cm; Wt 95.7 kg
[2016-11-29] MEDS ORDERED: METH10SO PO (11:28)
[2016-11-29] MEDS ORDERED: NS 1,000 ML IV ONE (13:00)
[2016-11-29] MEDS ORDERED: TRIMETHOBENZAMIDE HCL INJ 200 MG/2 ML VIAL (J3250) IM ONE (13:00)
[2016-11-29 13:39] LABS: AMYLASE 35 U/L (25-115); ANION GAP 8 MEQ/L (8-16); BLOOD UREA NITROGEN 15 MG/DL (7-18); CALCIUM LEVEL 9.4 MG/DL (8.5-10.1); CARBON DIOXIDE LEVEL 32 MEQ/L (21-32); CHLORIDE LEVEL 96 MEQ/L (98-107); CREATININE FOR GFR 1.02 MG/DL (0.55-1.02); GLOMERULAR FILTRATION RATE > 60.0 (>58); GLUCOSE, FASTING 94 MG/DL (70-105); POTASSIUM SERUM 3.5 MEQ/L (3.5-5.1); SODIUM LEVEL 136 MEQ/L (136-145)
[2016-11-29 14:16] LABS: BASO # 0.1 K/mm3 (0.0-0.2); BASO % 0.9 % (0.0-1.0); EOS # 0.1 K/mm3 (0.0-0.50); EOS % 1.6 % (0.0-3.0); LARGE UNSTAINED CELL # 0.3 K/mm3 (0.0-0.4); LARGE UNSTAINED CELL % 3.5 % (0.0-4.0); LYMPH # 2.2 K/mm3 (1.5-4.5); LYMPH % 29.2 % (24.0-44.0); MEAN CORPUSCULAR HEMOGLOBIN 30.3 pg (27.0-33.0); MEAN CORPUSCULAR HGB CONC 33.7 g/dl (32.0-36.5); MEAN CORPUSCULAR VOLUME 89.7 fl (80.0-96.0); MONO # 0.4 K/mm3 (0.0-0.8); MONO % 4.7 % (0.0-5.0); NEUTROPHILS # 4.6 K/mm3 (1.8-7.7); NEUTROPHILS % 60.2 % (36.0-66.0); PLATELET COUNT, AUTOMATED 253 k/mm3 (150-450); RED CELL DISTRIBUTION WIDTH 12.5 % (11.5-14.5); WHITE BLOOD COUNT 7.6 K/mm3 (4.0-10.0)
[2016-11-29 14:32] LABS: CONTROL LINE UCG INT CTR LINE PRESENT
[2016-11-29 15:41] VITALS: BP 132/87
[2016-11-29] MEDS ORDERED: COLA100C PO (15:43)
[2016-11-29] MEDS ORDERED: TIGA300C2 PO (15:45)
--- NOTE | 2016-11-29 16:11 | REP ---
Abdominal series: Four views: History: Constipation, nausea vomiting. Question small bowel obstruction. Comparison chest x-ray 12/21/2014. Findings: The patient is status post cervical discectomy and fusion plating. The lungs are well inflated and free of infiltrate. There is a granulomatous calcification in the left inferior perihilar region. Pleural angles are sharp. No free subdiaphragmatic air is seen. Supine and erect views of the abdomen demonstrate a normal bowel gas pattern. Psoas margins and flank stripes are intact. No mass organomegaly or pathologic calcification is appreciated. Impression: Old granuloma left lung base. Otherwise negative abdominal series. Normal bowel gas pattern. Signed by Niranjan Aguilera MD 11/29/2016 05:19 P
== END 2016-11-29 15:54 | disposition home or self-care (01) ==
LOC: M ED 12:40
DX: R11.2 Nausea with vomiting, unspecified (principal); K59.00 Constipation, unspecified; F11.10 Opioid abuse, uncomplicated; R91.8 Other nonspecific abnormal finding of lung field; Z79.899 Other long term (current) drug therapy; Z88.2 Allergy status to sulfonamides
CPT/HCPCS: 74022; 80048; 81001; 81025; 82150; 83690; 84703; 85025; 96372; 99283; J3250

== ENCOUNTER → 2017-02-05 | Outpatient (CLI) | payer OTHER ==
[~2017-02-05] MED LIST changes: +COLA100C3 PO; +METH10SO PO; +TIGA300C2 PO
[2017-02-05 10:24] LABS: BASO % 0.7 % (0.0-1.0); EOS # 0.2 K/mm3 (0.0-0.50); EOS % 3.1 % (0.0-3.0); LARGE UNSTAINED CELL # 0.2 K/mm3 (0.0-0.4); LARGE UNSTAINED CELL % 2.3 % (0.0-4.0); MEAN CORPUSCULAR HEMOGLOBIN 30.4 pg (27.0-33.0); MEAN CORPUSCULAR HGB CONC 31.7 g/dl (32.0-36.5); MEAN CORPUSCULAR VOLUME 96.1 fl (80.0-96.0); MONO # 0.5 K/mm3 (0.0-0.8); MONO % 6.6 % (0.0-5.0); NEUTROPHILS # 4.2 K/mm3 (1.8-7.7); NEUTROPHILS % 59.3 % (36.0-66.0); PLATELET COUNT, AUTOMATED 282 k/mm3 (150-450); RED CELL DISTRIBUTION WIDTH 13.5 % (11.5-14.5); WHITE BLOOD COUNT 7.1 K/mm3 (4.0-10.0)
[2017-02-05 11:12] LABS: ALBUMIN 3.3 GM/DL (3.2-5.2); ALBUMIN/GLOBULIN RATIO 0.89 (1.00-1.93); ALKALINE PHOSPHATASE 85 U/L (45-117); ALT/SGPT 66 U/L (12-78); ANION GAP 7 MEQ/L (8-16); AST/SGOT 59 U/L (15-37); BILIRUBIN,TOTAL 0.8 MG/DL (0.2-1.0); BLOOD UREA NITROGEN 10 MG/DL (7-18); CALCIUM LEVEL 8.8 MG/DL (8.5-10.1); CARBON DIOXIDE LEVEL 31 MEQ/L (21-32); CHLORIDE LEVEL 103 MEQ/L (98-107); CHOLESTEROL LEVEL 197 MG/DL (<200); CREATININE FOR GFR 0.85 MG/DL (0.55-1.02); GLOMERULAR FILTRATION RATE > 60.0 (>58); GLUCOSE, FASTING 104 MG/DL (70-105); POTASSIUM SERUM 4.2 MEQ/L (3.5-5.1); SODIUM LEVEL 141 MEQ/L (136-145); TRIGLYCERIDES LEVEL 124 MG/DL (<150)
[2017-02-07 14:16] LABS: HEPATITIS C QUANTITATION 40100 IU/mL (.)
== END ==
LOC: M LAB 09:56
PROVIDERS: ATTEND Family Medicine Addiction Medicine
DX: R63.5 Abnormal weight gain (principal)

== ENCOUNTER → 2017-03-17 | Outpatient (CLI) | payer OTHER ==
[~2017-03-17] MED LIST changes: +ALPR2TAB3; +CEFU250T PO; +GABA-279; +IPRASOL4 INH; +LEVO100T5; +LEVO500T32; +METH10CO PO; +NARC1SPR; +NEBUMIS2 XX; +PRAZ1CAP; +PRED20TA; +PRED20TA PO; +QUET5TAB
--- NOTE | 2017-03-17 12:15 | REP ---
Clinical: Cough and fever. Rule out pneumonia. Technique: PA and lateral. Comparison: 11/29/2016. Findings: Trace left basilar atelectasis/infiltrate and blunting to the diaphragmatic silhouette suggesting small associated pleural reaction. Right hemithorax appears clear. No pneumothorax. Mediastinum and cardiac silhouette are normal. Skeletal structures are intact. Impression: Left lower lobe infiltrate/atelectasis and small associated pleural reaction suggested. Clinical correlation is recommended along with follow-up to resolution. Signed by Jerson Puckett MD 03/17/2017 10:38 A
== END ==
LOC: M RAD 10:26
PROVIDERS: ATTEND Physician Assistant Medical
DX: R91.8 Other nonspecific abnormal finding of lung field (principal)

== ENCOUNTER 2017-03-20 10:10 | Emergency (ER) | payer OTHER ==
[~2017-03-20] VITALS: Ht 170.2 cm; Wt 122.5 kg
[~2017-03-20 10:10] MED LIST changes: -ALPR2TAB3; -CEFU250T PO; -COLA100C3 PO; +COLA100C5 PO; -GABA-279; -IPRASOL4 INH; -LEVO100T5; -LEVO500T32; -METH10CO PO; +METO25TA4 PO; -METO25TAB PO; -NARC1SPR; -NEBUMIS2 XX; -PRAZ1CAP; -PRED20TA; -PRED20TA PO; -QUET5TAB
[2017-03-20] MEDS ORDERED: LEVO500T3 (10:21)
[2017-03-20] MEDS ORDERED: CEFU1TAB20 PO (10:21)
[2017-03-20] MEDS ORDERED: LEVO100T5 (10:21)
[2017-03-20] MEDS ORDERED: PRED20TA (10:21)
[2017-03-20] MEDS ORDERED: QUET5TAB (10:21)
[2017-03-20] MEDS ORDERED: METH10CO PO (10:26)
[2017-03-20] MEDS ORDERED: GABA-279 (10:26)
[2017-03-20] MEDS ORDERED: ALPR2TAB3 (10:26)
[2017-03-20] MEDS ORDERED: PRAZ1CAP (10:26)
[2017-03-20] MEDS ORDERED: NARC1SPR (10:28)
[2017-03-20] MEDS ORDERED: methylPREDNISolone INJ 125 MG/2 ML VIAL (J2930) IM ONE (11:45)
[2017-03-20] MEDS ORDERED: IPRATROPIUM 0.5MG/ALBUTEROL 2.5MG INH SOL UD 3ML (DUONEB)(J7620) NEB ONE (11:45)
[2017-03-20] MEDS ORDERED: IPRASOL4 INH (12:32)
[2017-03-20] MEDS ORDERED: NEBUMIS2 XX (12:32)
[2017-03-20] MEDS ORDERED: PRED20TA PO (12:32)
[2017-03-20 12:41] VITALS: BP 148/66
== END 2017-03-20 12:49 | disposition home or self-care (01) ==
LOC: M ED 10:10
DX: J18.9 Pneumonia, unspecified organism (principal); I10 Essential (primary) hypertension; J45.909 Unspecified asthma, uncomplicated; F11.10 Opioid abuse, uncomplicated; F41.9 Anxiety disorder, unspecified; F32.9 Major depressive disorder, single episode, unspecified; G43.909 Migraine, unspecified, not intractable, without status migrainosus; F17.200 Nicotine dependence, unspecified, uncomplicated; Z79.899 Other long term (current) drug therapy; Z79.52 Long term (current) use of systemic steroids; Z79.2 Long term (current) use of antibiotics; Z88.2 Allergy status to sulfonamides

== ENCOUNTER 2017-04-04 08:04 | Emergency (ER) | payer OTHER ==
[~2017-04-04] VITALS: Ht 170.2 cm; Wt 81.8 kg
[~2017-04-04 08:04] MED LIST changes: +ALPR2TAB3; +CEFU1TAB20 PO; +GABA-279; +IPRASOL4 INH; +LEVO100T5; +LEVO500T3; +METH10CO PO; +NARC1SPR; +NEBUMIS2 XX; +PRAZ1CAP; +PRED20TA; +PRED20TA PO; +QUET5TAB
[2017-04-04] MEDS ORDERED: IPRATROPIUM 0.5MG/ALBUTEROL 2.5MG INH SOL UD 3ML (DUONEB)(J7620) NEB ONE ×2 (08:45→13:00)
[2017-04-04 08:54] LABS: BASO # 0.1 K/mm3 (0.0-0.2); BASO % 0.9 % (0.0-1.0); EOS # 0.5 K/mm3 (0.0-0.50); EOS % 7.6 % (0.0-3.0); LARGE UNSTAINED CELL # 0.1 K/mm3 (0.0-0.4); LARGE UNSTAINED CELL % 1.8 % (0.0-4.0); LYMPH # 1.7 K/mm3 (1.5-4.5); LYMPH % 24.3 % (24.0-44.0); MEAN CORPUSCULAR VOLUME 93.6 fl (80.0-96.0); MONO # 0.4 K/mm3 (0.0-0.8); NEUTROPHILS # 4.3 K/mm3 (1.8-7.7); NEUTROPHILS % 60.4 % (36.0-66.0); PLATELET COUNT, AUTOMATED 257 k/mm3 (150-450); RED CELL DISTRIBUTION WIDTH 13.3 % (11.5-14.5); WHITE BLOOD COUNT 7.1 K/mm3 (4.0-10.0)
[2017-04-04 09:14] LABS: ANION GAP 4 MEQ/L (8-16); BLOOD UREA NITROGEN 10 MG/DL (7-18); CALCIUM LEVEL 9.4 MG/DL (8.5-10.1); CARBON DIOXIDE LEVEL 31 MEQ/L (21-32); CHLORIDE LEVEL 103 MEQ/L (98-107); CREATININE FOR GFR 0.91 MG/DL (0.55-1.02); GLOMERULAR FILTRATION RATE > 60.0 (>58); GLUCOSE, FASTING 117 MG/DL (70-105); POTASSIUM SERUM 4.4 MEQ/L (3.5-5.1); SODIUM LEVEL 138 MEQ/L (136-145)
--- NOTE | 2017-04-04 09:17 | REP ---
PORTABLE CHEST: AP portable view of the chest is performed and compared to prior study of 03/17/2017. Bibasilar fibrotic scarring is stable. There is a calcified granuloma in the left lung base. There is no acute infiltrate. Heart is not enlarged. Mediastinal silhouette is unremarkable and unchanged. Metallic plate and screws are seen in the lower cervical spine. IMPRESSION: Stable chronic findings without evidence of acute infiltrate. Signed by Aleksandr Jacome MD 04/04/2017 05:21 P
[2017-04-04] MEDS ORDERED: ISOVUE-370 76% 100ML VIAL (Q9967) As Ordered ONE (09:25)
--- NOTE | 2017-04-04 10:13 | REP ---
CT ANGIOGRAM OF THE CHEST: TECHNIQUE: Axial contrast enhanced images from the thoracic inlet to the upper abdomen using 100 mL Isovue 370 intravenous contrast material with multiplanar reformations. The study is limited by patient motion. No definite central pulmonary embolism is seen. The more peripheral pulmonary arteries are not optimally seen due to breathing motion. There is no evidence of thoracic aortic aneurysm or dissection. There is no evidence of mediastinal or hilar adenopathy. The heart is normal in size. There is no pleural or pericardial effusion. Calcified granuloma is seen in the lingula. There is mild interstitial fibrosis in the lung bases. The visualized upper abdominal structures appear unremarkable. IMPRESSION: Study limited by patient motion. No definite central pulmonary embolism. Signed by Aleksandr Jacome MD 04/04/2017 05:22 P
[2017-04-04] MEDS ORDERED: MAG SULF 1GM/100ML (MAG RUN) 1 GM in APPROPRIATE DILUENT 1 EA IV ONE (13:00)
[2017-04-04] MEDS ORDERED: methylPREDNISolone INJ 125 MG/2 ML VIAL (J2930) IV ONE (13:00)
[2017-04-04] MEDS ORDERED: ALBU83IN INH (14:45)
[2017-04-04 15:13] VITALS: BP 121/80
--- NOTE | 2017-04-04 21:31 | ECGEPIP ---
Stationary ECG Study [facility] - ED Test Date: 2017-04-04 Pat Name: HOMERO TREJO Department: Room: - Gender: F [employer]: VANE : 1975 Requested By: JIM Proctor Order Number: [id number] Reading MD: Kristina Davis Measurements Intervals [place] Rate: 92 P: 50 MN: 154 QRS: 70 QRSD: 79 T: -4 QT: 361 QTc: 447 Interpretive Statements SINUS RHYTHM ABNORMAL QRS-T ANGLE NSTTW ABNORMALITY SIMILAR 10/06/16 Electronically Signed On 04-04-2017 21:31:15 EDT by Kristina Davis
== END 2017-04-04 15:17 | disposition home or self-care (01) ==
LOC: M ED 08:04
DX: R06.02 Shortness of breath (principal); F41.9 Anxiety disorder, unspecified; F32.9 Major depressive disorder, single episode, unspecified; G43.909 Migraine, unspecified, not intractable, without status migrainosus; F17.200 Nicotine dependence, unspecified, uncomplicated; Z88.2 Allergy status to sulfonamides; Z79.899 Other long term (current) drug therapy
CPT/HCPCS: 36415; 71010; 71275; 80048; 83880; 85025; 93000; 93041; 94640; 94760; 96374; 99285; J2930; J3475; Q9967

== ENCOUNTER → 2017-04-15 | Outpatient (REF) | payer OTHER ==
[~2017-04-15] MED LIST changes: +ALBU83IN INH
[2017-04-19 00:07] LABS: ALT 83 IU/L (0-40); FIBROSIS STAGE F0-F1 (.); GGT 47 IU/L (0-60); HAPTOGLOBIN 201 mg/dL (34-200); HEPATITIS C QUANTITATION 217500 IU/mL (.); HEPATITIS C VIRUS GENOTYPE 3 (.); NECROINFLAM SCORE 0.46 (0.00-0.17); NECROINFLAMM GRADE A1-A2 (.); TOTAL BILIRUBIN 0.7 mg/dL (0.0-1.2)
== END ==
LOC: M SFHCPLAZ 09:39 → MERGE 09:39
PROVIDERS: ATTEND Internal Medicine Infectious Disease
DX: B18.2 Chronic viral hepatitis C (principal)

== ENCOUNTER → 2017-07-08 | Outpatient (REF) | payer OTHER ==
[2017-07-08 13:25] LABS: ALBUMIN 3.8 GM/DL (3.2-5.2); ALBUMIN/GLOBULIN RATIO 1.03 (1.00-1.93); BILIRUBIN,DIRECT 0.2 MG/DL (0.0-0.2); BILIRUBIN,TOTAL 0.9 MG/DL (0.2-1.0); TOTAL PROTEIN 7.5 GM/DL (6.4-8.2)
[2017-07-10 08:16] LABS: HEPATITIS C QUANTITATION HCV Not Detected IU/mL (.)
== END ==
LOC: M SFHCPLAZ 08:42
PROVIDERS: ATTEND Internal Medicine Infectious Disease
DX: B18.2 Chronic viral hepatitis C (principal)

== ENCOUNTER → 2017-11-09 | Outpatient (CLI) | payer OTHER ==
[2017-11-09 10:14] LABS: HEMATOCRIT 41.8 % (36.0-47.0); HEMOGLOBIN 13.2 g/dl (12.0-16.0); MEAN CORPUSCULAR HEMOGLOBIN 29.8 pg (27.0-33.0); MEAN CORPUSCULAR HGB CONC 31.6 g/dl (32.0-36.5); MEAN CORPUSCULAR VOLUME 94.4 fl (80.0-96.0); PLATELET COUNT, AUTOMATED 270 10^3/uL (150-450); RED BLOOD COUNT 4.43 10^6/uL (4.00-5.40); WHITE BLOOD COUNT 8.3 10^3/uL (4.0-10.0)
[2017-11-09 10:44] LABS: ALBUMIN 3.7 GM/DL (3.2-5.2); ALBUMIN/GLOBULIN RATIO 1.06 (1.00-1.93); ALKALINE PHOSPHATASE 135 U/L (45-117); ALT/SGPT 43 U/L (12-78); ANION GAP 5 MEQ/L (8-16); AST/SGOT 32 U/L (7-37); BILIRUBIN,TOTAL 0.8 MG/DL (0.2-1.0); BLOOD UREA NITROGEN 7 MG/DL (7-18); CARBON DIOXIDE LEVEL 36 MEQ/L (21-32); CHLORIDE LEVEL 99 MEQ/L (98-107); CREATININE FOR GFR 0.91 MG/DL (0.55-1.30); GLOMERULAR FILTRATION RATE > 60.0 (>58); GLUCOSE, FASTING 104 MG/DL (70-100); POTASSIUM SERUM 4.6 MEQ/L (3.5-5.1); SODIUM LEVEL 140 MEQ/L (136-145); TOTAL PROTEIN 7.2 GM/DL (6.4-8.2)
[2017-11-09 12:01] LABS: CHLAMYDIA DNA AMPLIFICATION NEGATIVE (NEGATIVE); GC DNA AMPLIFICATION NEGATIVE (NEGATIVE)
[2017-11-10 11:54] LABS: HEPATITIS B SURFACE ANTIGEN NEGATIVE (NEGATIVE)
[2017-11-10 12:12] LABS: HIV 1&2 SCREEN CENTAUR NEGATIVE (NEGATIVE)
[2017-11-10 12:59] LABS: HEPATITIS C VIRUS ABY INDEX > 11.0 INDEX (<0.8)
[2017-11-13 14:12] LABS: HCV RNA NAA QUALITATIVE Negative (Negative)
== END ==
LOC: M LAB 08:39
DX: F11.20 Opioid dependence, uncomplicated (principal)
CPT/HCPCS: 93005

== ENCOUNTER → 2018-01-11 | Outpatient (CLI) | payer OTHER | LOC: M EKG 08:52 | DX: F11.20 Opioid dependence, uncomplicated (principal) | CPT/HCPCS: 93005 ==

== ENCOUNTER → 2018-11-20 | Outpatient (CLI) | payer OTHER ==
[~2018-11-20] MED LIST changes: +GABA-1171; -GABA-279; +IPRA0.00 INH; -IPRASOL4 INH
[2018-11-20 10:17] LABS: HEMATOCRIT 49.6 % (36.0-47.0); HEMOGLOBIN 15.7 g/dl (12.0-15.5); MEAN CORPUSCULAR HEMOGLOBIN 28.6 pg (27.0-33.0); MEAN CORPUSCULAR HGB CONC 31.7 g/dl (32.0-36.5); MEAN CORPUSCULAR VOLUME 90.3 fl (80.0-96.0); PLATELET COUNT, AUTOMATED 267 10^3/uL (150-450); RED BLOOD COUNT 5.49 10^6/uL (4.00-5.40); WHITE BLOOD COUNT 7.2 10^3/uL (4.0-10.0)
[2018-11-20 10:50] LABS: ALBUMIN 3.7 GM/DL (3.2-5.2); ALT/SGPT 49 U/L (12-78); BILIRUBIN,TOTAL 0.7 MG/DL (0.2-1.0); BLOOD UREA NITROGEN 12 MG/DL (7-18); CALCIUM LEVEL 8.9 MG/DL (8.5-10.1); CARBON DIOXIDE LEVEL 31 MEQ/L (21-32); CHLORIDE LEVEL 105 MEQ/L (98-107); CREATININE FOR GFR 1.37 MG/DL (0.55-1.30); GLOMERULAR FILTRATION RATE 44.6 (>58); GLUCOSE, FASTING 66 MG/DL (70-100); HCG, SERUM QUALITATIVE NEGATIVE (NEGATIVE); POTASSIUM SERUM 4.8 MEQ/L (3.5-5.1); SODIUM LEVEL 142 MEQ/L (136-145); TOTAL PROTEIN 6.9 GM/DL (6.4-8.2)
[2018-11-20 11:10] LABS: HEPATITIS B SURFACE ANTIGEN NEGATIVE (NEGATIVE)
[2018-11-20 11:38] LABS: HIV 1&2 SCREEN CENTAUR NEGATIVE (NEGATIVE)
[2018-11-20 11:42] LABS: HEPATITIS C VIRUS ABY INDEX > 11.0 INDEX (<0.8)
[2018-11-20 12:54] LABS: CHLAMYDIA DNA AMPLIFICATION NEGATIVE (NEGATIVE); GC DNA AMPLIFICATION NEGATIVE (NEGATIVE)
--- NOTE | 2018-11-20 14:24 | ECGEPIP ---
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
== END ==
LOC: M LAB 09:41
PROVIDERS: ATTEND Family Medicine
DX: F11.20 Opioid dependence, uncomplicated (principal)

== ENCOUNTER → 2019-05-31 | Outpatient (REF) | payer OTHER ==
[2019-05-31 17:44] LABS: ALBUMIN 4.1 GM/DL (3.2-5.2); BILIRUBIN,TOTAL 0.7 MG/DL (0.2-1.0); CALCIUM LEVEL 9.6 MG/DL (8.5-10.1); CHOLESTEROL RISK RATIO 4.846 (<5); CREATININE FOR GFR 1.39 MG/DL (0.55-1.30); FREE T4 0.83 NG/DL (0.76-1.46); GLOMERULAR FILTRATION RATE 43.6 (>58); POTASSIUM SERUM 4.3 MEQ/L (3.5-5.1); TOTAL PROTEIN 7.7 GM/DL (6.4-8.2)
[2019-05-31 17:46] LABS: TOTAL 25(OH) VITAMIN D 6.8 NG/ML (30.0-100.0)
[2019-05-31 17:58] LABS: BASO # 0.1 10^3/uL (0.0-0.2); BASO % 1.1 % (0.0-1.0); EOS # 0.2 10^3/uL (0.0-0.5); EOS % 2.3 % (0.0-3.0); HEMATOCRIT 49.9 % (36.0-47.0); LYMPH # 3.4 10^3/uL (1.5-5.0); MEAN CORPUSCULAR HEMOGLOBIN 30.8 pg (27.0-33.0); MEAN CORPUSCULAR HGB CONC 32.1 g/dl (32.0-36.5); MEAN CORPUSCULAR VOLUME 96.1 fl (80.0-96.0); MONO # 0.4 10^3/uL (0.0-0.8); MONO % 4.6 % (0.0-5.0); NEUTROPHILS # 4.8 10^3/uL (1.5-8.5); NEUTROPHILS % 53.6 % (36.0-66.0); PLATELET COUNT, AUTOMATED 336 10^3/uL (150-450); RED BLOOD COUNT 5.19 10^6/uL (4.00-5.40)
[2019-05-31 18:10] LABS: HEMOGLOBIN A1c 5.3 %
== END ==
LOC: M LAB REF 16:39
PROVIDERS: ATTEND Nurse Practitioner Family
DX: Z00.01 Encounter for general adult medical examination with abnormal findings (principal)

== ENCOUNTER → 2019-08-20 | Outpatient (REF) | payer OTHER, MEDICAID ==
[2019-08-20 13:38] LABS: FREE T4 0.81 NG/DL (0.76-1.46); THYROID STIMULATING HORMONE 2.6 uIU/ML (0.358-3.740)
== END ==
LOC: M LAB REF 12:38
PROVIDERS: ATTEND Nurse Practitioner Family
DX: E03.9 Hypothyroidism, unspecified (principal)

== ENCOUNTER → 2020-01-13 | Outpatient (REF) | payer OTHER, MEDICAID ==
[2020-01-13 15:25] LABS: BASO # 0.1 10^3/uL (0.0-0.2); BASO % 1.1 % (0.0-1.0); EOS # 0.2 10^3/uL (0.0-0.5); EOS % 1.8 % (0.0-3.0); HEMATOCRIT 51.2 % (36.0-47.0); LYMPH # 2.9 10^3/uL (1.5-5.0); LYMPH % 31.1 % (24.0-44.0); MEAN CORPUSCULAR HEMOGLOBIN 28.6 pg (27.0-33.0); MEAN CORPUSCULAR HGB CONC 31.3 g/dl (32.0-36.5); MEAN CORPUSCULAR VOLUME 91.6 fl (80.0-96.0); MONO # 0.4 10^3/uL (0.0-0.8); MONO % 3.7 % (0.0-5.0); NEUTROPHILS # 5.8 10^3/uL (1.5-8.5); NEUTROPHILS % 61.3 % (36.0-66.0); PLATELET COUNT, AUTOMATED 412 10^3/uL (150-450); RED BLOOD COUNT 5.59 10^6/uL (4.00-5.40); WHITE BLOOD COUNT 9.4 10^3/uL (4.0-10.0)
[2020-01-13 15:43] LABS: BILIRUBIN,TOTAL 0.6 MG/DL (0.2-1.0); CALCIUM LEVEL 10.2 MG/DL (8.5-10.1); CHOLESTEROL RISK RATIO 5.318 (<5); CREATININE FOR GFR 1.5 MG/DL (0.55-1.30); GLOMERULAR FILTRATION RATE 39.8 (>58); POTASSIUM SERUM 4.7 MEQ/L (3.5-5.1); THYROID STIMULATING HORMONE 3.41 uIU/ML (0.358-3.740); TOTAL 25(OH) VITAMIN D 18.3 NG/ML (30.0-100.0); TOTAL PROTEIN 7.9 GM/DL (6.4-8.2)
== END ==
LOC: M LAB REF 14:50
PROVIDERS: ATTEND Family Medicine
DX: E03.9 Hypothyroidism, unspecified (principal)

== ENCOUNTER → 2020-06-13 | Outpatient (CLI) | payer OTHER, MEDICAID ==
[2020-06-13 08:13] LABS: HEMATOCRIT 46.8 % (36.0-47.0); HEMOGLOBIN 14.7 g/dl (12.0-15.5); MEAN CORPUSCULAR HEMOGLOBIN 29.6 pg (27.0-33.0); MEAN CORPUSCULAR HGB CONC 31.4 g/dl (32.0-36.5); MEAN CORPUSCULAR VOLUME 94.2 fl (80.0-96.0); PLATELET COUNT, AUTOMATED 264 10^3/uL (150-450); RED BLOOD COUNT 4.97 10^6/uL (4.00-5.40)
[2020-06-13 08:46] LABS: ALBUMIN 3.4 GM/DL (3.2-5.2); ALT/SGPT 26 U/L (12-78); BILIRUBIN,TOTAL 0.4 MG/DL (0.2-1.0); BLOOD UREA NITROGEN 8 MG/DL (7-18); CALCIUM LEVEL 8.9 MG/DL (8.5-10.1); CARBON DIOXIDE LEVEL 31 MEQ/L (21-32); CHLORIDE LEVEL 105 MEQ/L (98-107); CREATININE FOR GFR 1.08 MG/DL (0.55-1.30); GLOMERULAR FILTRATION RATE 58.1 (>58); GLUCOSE, FASTING 97 MG/DL (70-100); HCG, SERUM QUANTITATIVE < 1.0 MIU/ML; POTASSIUM SERUM 4.4 MEQ/L (3.5-5.1); SODIUM LEVEL 141 MEQ/L (136-145); TOTAL PROTEIN 6.3 GM/DL (6.4-8.2)
[2020-06-13 09:04] LABS: HEPATITIS B SURFACE ANTIGEN NEGATIVE (NEGATIVE)
[2020-06-13 09:33] LABS: HIV 1&2 SCREEN CENTAUR NEGATIVE (NEGATIVE)
[2020-06-13 09:36] LABS: HEPATITIS C VIRUS ABY INDEX > 11.0 INDEX (<0.8)
--- NOTE | 2020-06-13 20:08 | ECGEPIP ---
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
== END ==
LOC: M LAB 07:15
PROVIDERS: ATTEND Family Medicine
DX: F11.11 Opioid abuse, in remission (principal)

== ENCOUNTER → 2021-11-13 | Outpatient (REF) ==
[~2021-11-13] MED LIST changes: +AMIT75TA PO; +GABA-283 PO; -LEVO500T3; +LEVO500T4; +METH10CO3 PO; +METH20TA29 PO; -NARC1SPR; +NARC1SPR NARES; +OLAN1TAB16 PO; -OLAN5TAB PO; +QUET50TA4; -QUET5TAB
== END ==
LOC: M LAB 09:04
PROVIDERS: ATTEND Nurse Practitioner Family
DX: Z02.1 Encounter for pre-employment examination (principal)

== ENCOUNTER 2021-11-18 12:06 | Inpatient (IN) | payer MEDICAID, OTHER ==
[~2021-11-18] VITALS: Ht 167.6 cm; Wt 104.4 kg
[~2021-11-18 12:06] MED LIST changes: -AMIT75TA PO; -GABA-283 PO; -METH10CO3 PO; -METH20TA29 PO
[2021-11-18] MEDS ORDERED: GABA-283 PO (12:20)
[2021-11-18] MEDS ORDERED: ACETAMINOPHEN *IV* 1,000 MG in IV 1 EA IV ONE (13:05)
[2021-11-18 13:24] LABS: BASO % 0.4 % (0.0-1.0); EOS # 0.1 10^3/uL (0.0-0.5); EOS % 0.5 % (0.0-3.0); HEMATOCRIT 34.1 % (36.0-47.0); HEMOGLOBIN 10.9 g/dl (12.0-15.5); LYMPH % 20.8 % (24.0-44.0); MEAN CORPUSCULAR HEMOGLOBIN 29.1 pg (27.0-33.0); MEAN CORPUSCULAR VOLUME 90.9 fl (80.0-96.0); MONO # 0.5 10^3/uL (0.0-0.8); MONO % 5.2 % (2.0-8.0); NEUTROPHILS # 6.8 10^3/uL (1.5-8.5); NEUTROPHILS % 72.9 % (36.0-66.0); PLATELET COUNT, AUTOMATED 230 10^3/uL (150-450); RED BLOOD COUNT 3.75 10^6/uL (4.00-5.40); WHITE BLOOD COUNT 9.4 10^3/uL (4.0-10.0)
[2021-11-18 13:55] LABS: BLOOD UREA NITROGEN 11 MG/DL (7-18); CALCIUM LEVEL 8.4 MG/DL (8.5-10.1); CARBON DIOXIDE LEVEL 30 MEQ/L (21-32); CHLORIDE LEVEL 103 MEQ/L (98-107); CREATININE FOR GFR 0.87 MG/DL (0.55-1.30); GLOMERULAR FILTRATION RATE > 60.0 (>58); GLUCOSE, FASTING 95 MG/DL (70-100); POTASSIUM SERUM 3.8 MEQ/L (3.5-5.1); SODIUM LEVEL 138 MEQ/L (136-145)
[2021-11-18] MEDS ORDERED: KETOROLAC 30 MG/ML 1ML VIAL IV ONE (13:55)
[2021-11-18] MEDS ORDERED: diazePAM 10MG/2ML SYRINGE (J3360 PER 5MG) IV ONE (15:05)
[2021-11-18] MEDS ORDERED: PERCOCET 5MG/325MG TAB PO PRN ×2 (16:15)
[2021-11-18] MEDS ORDERED: ONDANSETRON 4MG/2ML VIAL IV PRN (16:15)
[2021-11-18] MEDS ORDERED: AMIT75TA PO (16:41)
[2021-11-18] MEDS ORDERED: METH20TA29 PO (16:41)
[2021-11-18] MEDS ORDERED: METH10CO3 PO (16:42)
[2021-11-18] MEDS ORDERED: HOME MED LIST COMPLETE! XX SCH (16:45)
[2021-11-18] MEDS ORDERED: METHADONE 10 MG TAB (S0109) PO ONE (16:45)
[2021-11-18] MEDS ORDERED: KETOROLAC 30 MG/ML 1ML VIAL IV PRN (16:45)
[2021-11-18 18:15] VITALS: BP 131/80
[2021-11-18] MEDS: DOXYCYCLINE HYCLATE 100 MG in D5W MINI-BAG PLUS 100 ML IV SCH (18:30)
[2021-11-18] MEDS: ACETAMINOPHEN TAB 650MG DOSE (2X325MG) PO PRN ×2 (18:35→23:28)
[2021-11-18] MEDS: cefTRIAXone SOD 1 GM in D5W MINI-BAG PLUS 50 ML IV SCH (19:58)
[2021-11-18] MEDS: DOCUSATE SODIUM 100MG CAPSULE PO SCH (19:58)
[2021-11-18 20:00] VITALS: BP 128/81
[2021-11-18] MEDS: KETOROLAC 30 MG/ML 1ML VIAL IV PRN (20:01)
[2021-11-18] MEDS: carisoprodoL 350 MG TAB PO PRN (23:28)
[2021-11-19] MEDS: KETOROLAC 30 MG/ML 1ML VIAL IV PRN (04:15)
[2021-11-19] MEDS: DOXYCYCLINE HYCLATE 100 MG in D5W MINI-BAG PLUS 100 ML IV SCH ×2 (04:15→16:36)
[2021-11-19] MEDS: carisoprodoL 350 MG TAB PO PRN (05:45)
[2021-11-19 06:00] VITALS: BP 116/66
[2021-11-19 06:09] LABS: HEMATOCRIT 32.2 % (36.0-47.0); MEAN CORPUSCULAR HEMOGLOBIN 28.9 pg (27.0-33.0); MEAN CORPUSCULAR HGB CONC 31.1 g/dl (32.0-36.5); MEAN CORPUSCULAR VOLUME 93.1 fl (80.0-96.0); PLATELET COUNT, AUTOMATED 211 10^3/uL (150-450); RED BLOOD COUNT 3.46 10^6/uL (4.00-5.40); WHITE BLOOD COUNT 6.9 10^3/uL (4.0-10.0)
[2021-11-19 06:54] LABS: ALBUMIN 2.5 GM/DL (3.2-5.2); BILIRUBIN,TOTAL 0.8 MG/DL (0.2-1.0); CALCIUM LEVEL 8.5 MG/DL (8.5-10.1); CREATININE FOR GFR 1.1 MG/DL (0.55-1.30); GLOMERULAR FILTRATION RATE 56.7 (>58); MAGNESIUM LEVEL 2.4 MG/DL (1.8-2.4); POTASSIUM SERUM 3.5 MEQ/L (3.5-5.1); TOTAL PROTEIN 6.3 GM/DL (6.4-8.2)
[2021-11-19] MEDS ORDERED: INFLUENZA QUADRIVALENT PF VACCINE 0.5ML SYRINGE IM ONE (09:00)
[2021-11-19] MEDS ORDERED: NS 1,000 ML IV SCH (09:10)
[2021-11-19] MEDS ORDERED: AMITRIPTYLINE 25MG TABLET PO PRN (09:10)
[2021-11-19] MEDS ORDERED: PERCOCET 5MG/325MG TAB PO PRN (09:15)
[2021-11-19] MEDS: GABAPENTIN 400MG CAP PO SCH ×3 (10:18→21:34)
[2021-11-19] MEDS: DOCUSATE SODIUM 100MG CAPSULE PO SCH ×2 (10:18→21:34)
[2021-11-19] MEDS: PERCOCET 5MG/325MG TAB PO PRN ×3 (10:19→22:33)
[2021-11-19] MEDS ORDERED: PILL CUTTER 1 EACH XX PRN (11:10)
[2021-11-19] MEDS ORDERED: METHADONE 10 MG TAB (S0109) PO SCH (11:30)
[2021-11-19] MEDS: ENOXAPARIN 40MG/0.4ML SYRINGE (J1650 PER 10MG) SC SCH (11:42)
[2021-11-19] MEDS: METHADONE 10 MG TAB (S0109) PO SCH (11:42)
[2021-11-19 14:00] VITALS: BP 123/81
[2021-11-19] MEDS: METHYLPHENIDATE 5 MG TAB PO SCH (14:12)
[2021-11-19] MEDS: cefTRIAXone SOD 1 GM in D5W MINI-BAG PLUS 50 ML IV SCH (18:18)
[2021-11-19 19:55] VITALS: BP 121/79
[2021-11-20] MEDS: DOXYCYCLINE HYCLATE 100 MG in D5W MINI-BAG PLUS 100 ML IV SCH ×2 (05:00→16:49)
[2021-11-20] MEDS: PERCOCET 5MG/325MG TAB PO PRN ×3 (05:00→17:42)
[2021-11-20 06:33] VITALS: BP 120/79
[2021-11-20] MEDS: METHADONE 10 MG TAB (S0109) PO SCH (08:15)
[2021-11-20] MEDS: METHYLPHENIDATE 5 MG TAB PO SCH (08:15)
[2021-11-20 08:30] VITALS: BP 120/68
[2021-11-20] MEDS: DOCUSATE SODIUM 100MG CAPSULE PO SCH ×2 (09:49→20:38)
[2021-11-20] MEDS: GABAPENTIN 400MG CAP PO SCH ×3 (09:49→20:38)
[2021-11-20] MEDS: ENOXAPARIN 40MG/0.4ML SYRINGE (J1650 PER 10MG) SC SCH (09:51)
[2021-11-20 13:21] LABS: BLOOD UREA NITROGEN 9 MG/DL (7-18); CALCIUM LEVEL 8.5 MG/DL (8.5-10.1); CARBON DIOXIDE LEVEL 30 MEQ/L (21-32); CHLORIDE LEVEL 109 MEQ/L (98-107); CREATININE FOR GFR 0.96 MG/DL (0.55-1.30); GLOMERULAR FILTRATION RATE > 60.0 (>58); GLUCOSE, FASTING 106 MG/DL (70-100); POTASSIUM SERUM 3.8 MEQ/L (3.5-5.1); SODIUM LEVEL 142 MEQ/L (136-145)
[2021-11-20 14:00] VITALS: BP 120/81
[2021-11-20] MEDS: cefTRIAXone SOD 1 GM in D5W MINI-BAG PLUS 50 ML IV SCH (18:11)
[2021-11-20 20:00] VITALS: BP 118/78
[2021-11-20 22:00] VITALS: BP 118/78
[2021-11-21] MEDS: PERCOCET 5MG/325MG TAB PO PRN ×4 (02:01→21:45)
[2021-11-21] MEDS: DOXYCYCLINE HYCLATE 100 MG in D5W MINI-BAG PLUS 100 ML IV SCH (05:29)
[2021-11-21 06:00] VITALS: BP 128/86
[2021-11-21] MEDS: METHYLPHENIDATE 5 MG TAB PO SCH (09:29)
[2021-11-21] MEDS: GABAPENTIN 400MG CAP PO SCH ×3 (09:29→21:45)
[2021-11-21] MEDS: DOCUSATE SODIUM 100MG CAPSULE PO SCH ×2 (09:29→20:30)
[2021-11-21] MEDS: METHADONE 10 MG TAB (S0109) PO SCH (09:29)
[2021-11-21] MEDS: ENOXAPARIN 40MG/0.4ML SYRINGE (J1650 PER 10MG) SC SCH (09:30)
[2021-11-21 12:52] LABS: HEMATOCRIT 38.4 % (36.0-47.0); HEMOGLOBIN 12.1 g/dl (12.0-15.5); MEAN CORPUSCULAR HEMOGLOBIN 29.2 pg (27.0-33.0); MEAN CORPUSCULAR HGB CONC 31.5 g/dl (32.0-36.5); MEAN CORPUSCULAR VOLUME 92.5 fl (80.0-96.0); PLATELET COUNT, AUTOMATED 364 10^3/uL (150-450); RED BLOOD COUNT 4.15 10^6/uL (4.00-5.40); WHITE BLOOD COUNT 6.9 10^3/uL (4.0-10.0)
[2021-11-21 13:16] LABS: BLOOD UREA NITROGEN 6 MG/DL (7-18); CALCIUM LEVEL 8.8 MG/DL (8.5-10.1); CARBON DIOXIDE LEVEL 29 MEQ/L (21-32); CHLORIDE LEVEL 107 MEQ/L (98-107); CREATININE FOR GFR 0.82 MG/DL (0.55-1.30); GLOMERULAR FILTRATION RATE > 60.0 (>58); GLUCOSE, FASTING 84 MG/DL (70-100); MAGNESIUM LEVEL 2.4 MG/DL (1.8-2.4); POTASSIUM SERUM 3.9 MEQ/L (3.5-5.1); SODIUM LEVEL 141 MEQ/L (136-145)
[2021-11-21] MEDS: CEFDINIR 300 MG CAP (OMNICEF) PO SCH (21:44)
[2021-11-21] MEDS: DOXYCYCLINE HYCLATE 100MG TABLET PO SCH (21:45)
[2021-11-22] MEDS: PERCOCET 5MG/325MG TAB PO PRN ×4 (04:12→22:26)
[2021-11-22 06:00] VITALS: BP 133/81
[2021-11-22 07:50] LABS: HEMATOCRIT 40.7 % (36.0-47.0); HEMOGLOBIN 12.9 g/dl (12.0-15.5); MEAN CORPUSCULAR HEMOGLOBIN 29.4 pg (27.0-33.0); MEAN CORPUSCULAR HGB CONC 31.7 g/dl (32.0-36.5); MEAN CORPUSCULAR VOLUME 92.7 fl (80.0-96.0); PLATELET COUNT, AUTOMATED 403 10^3/uL (150-450); RED BLOOD COUNT 4.39 10^6/uL (4.00-5.40); WHITE BLOOD COUNT 9.8 10^3/uL (4.0-10.0)
[2021-11-22] MEDS: METHYLPHENIDATE 5 MG TAB PO SCH (09:29)
[2021-11-22] MEDS: GABAPENTIN 400MG CAP PO SCH ×3 (09:29→21:24)
[2021-11-22] MEDS: DOCUSATE SODIUM 100MG CAPSULE PO SCH ×2 (09:29→21:00)
[2021-11-22] MEDS: DOXYCYCLINE HYCLATE 100MG TABLET PO SCH ×2 (09:29→21:24)
[2021-11-22] MEDS: METHADONE 10 MG TAB (S0109) PO SCH (09:30)
[2021-11-22] MEDS: ENOXAPARIN 40MG/0.4ML SYRINGE (J1650 PER 10MG) SC SCH (09:30)
[2021-11-22] MEDS: CEFDINIR 300 MG CAP (OMNICEF) PO SCH ×2 (09:30→21:24)
[2021-11-23] MEDS: PERCOCET 5MG/325MG TAB PO PRN ×4 (04:39→22:16)
[2021-11-23 06:41] VITALS: BP 134/84
[2021-11-23] MEDS: METHYLPHENIDATE 5 MG TAB PO SCH (08:58)
[2021-11-23] MEDS: CEFDINIR 300 MG CAP (OMNICEF) PO SCH ×2 (08:58→21:07)
[2021-11-23] MEDS: METHADONE 10 MG TAB (S0109) PO SCH (08:58)
[2021-11-23] MEDS: ENOXAPARIN 40MG/0.4ML SYRINGE (J1650 PER 10MG) SC SCH (08:59)
[2021-11-23] MEDS: DOXYCYCLINE HYCLATE 100MG TABLET PO SCH ×2 (08:59→21:07)
[2021-11-23] MEDS: DOCUSATE SODIUM 100MG CAPSULE PO SCH ×2 (08:59→21:06)
[2021-11-23] MEDS: GABAPENTIN 400MG CAP PO SCH ×3 (08:59→21:07)
[2021-11-24] MEDS: PERCOCET 5MG/325MG TAB PO PRN ×4 (04:04→22:59)
[2021-11-24 06:00] VITALS: BP 132/62
[2021-11-24] MEDS: ENOXAPARIN 40MG/0.4ML SYRINGE (J1650 PER 10MG) SC SCH (09:00)
[2021-11-24] MEDS: DOCUSATE SODIUM 100MG CAPSULE PO SCH ×2 (10:07→20:58)
[2021-11-24] MEDS: METHADONE 10 MG TAB (S0109) PO SCH (10:07)
[2021-11-24] MEDS: METHYLPHENIDATE 5 MG TAB PO SCH (10:08)
[2021-11-24] MEDS: CEFDINIR 300 MG CAP (OMNICEF) PO SCH ×2 (10:08→20:58)
[2021-11-24] MEDS: GABAPENTIN 400MG CAP PO SCH ×3 (10:08→20:58)
[2021-11-24] MEDS: DOXYCYCLINE HYCLATE 100MG TABLET PO SCH ×2 (10:08→20:59)
[2021-11-24] MEDS: ACETAMINOPHEN TAB 650MG DOSE (2X325MG) PO PRN (20:58)
[2021-11-25] MEDS: PERCOCET 5MG/325MG TAB PO PRN ×5 (04:42→21:28)
[2021-11-25 06:00] VITALS: BP 133/79
[2021-11-25 07:16] LABS: HEMATOCRIT 36.1 % (36.0-47.0); HEMOGLOBIN 11.2 g/dl (12.0-15.5); MEAN CORPUSCULAR HEMOGLOBIN 28.9 pg (27.0-33.0); PLATELET COUNT, AUTOMATED 390 10^3/uL (150-450); RED BLOOD COUNT 3.88 10^6/uL (4.00-5.40); WHITE BLOOD COUNT 6.8 10^3/uL (4.0-10.0)
[2021-11-25 07:31] LABS: BLOOD UREA NITROGEN 13 MG/DL (7-18); CALCIUM LEVEL 8.6 MG/DL (8.5-10.1); CARBON DIOXIDE LEVEL 31 MEQ/L (21-32); CHLORIDE LEVEL 106 MEQ/L (98-107); CREATININE FOR GFR 0.92 MG/DL (0.55-1.30); GLOMERULAR FILTRATION RATE > 60.0 (>58); GLUCOSE, FASTING 97 MG/DL (70-100); POTASSIUM SERUM 4.3 MEQ/L (3.5-5.1); SODIUM LEVEL 141 MEQ/L (136-145)
[2021-11-25] MEDS: METHADONE 10 MG TAB (S0109) PO SCH (09:02)
[2021-11-25] MEDS: DOXYCYCLINE HYCLATE 100MG TABLET PO SCH (09:03)
[2021-11-25] MEDS: METHYLPHENIDATE 5 MG TAB PO SCH (09:03)
[2021-11-25] MEDS: CEFDINIR 300 MG CAP (OMNICEF) PO SCH (09:03)
[2021-11-25] MEDS: DOCUSATE SODIUM 100MG CAPSULE PO SCH ×2 (09:03→21:00)
[2021-11-25] MEDS: GABAPENTIN 400MG CAP PO SCH ×3 (09:03→21:28)
[2021-11-25] MEDS: ENOXAPARIN 40MG/0.4ML SYRINGE (J1650 PER 10MG) SC SCH (09:05)
[2021-11-26] MEDS: PERCOCET 5MG/325MG TAB PO PRN ×5 (02:51→22:19)
[2021-11-26 06:00] VITALS: BP 125/79
[2021-11-26] MEDS: METHYLPHENIDATE 5 MG TAB PO SCH (08:22)
[2021-11-26] MEDS: DOCUSATE SODIUM 100MG CAPSULE PO SCH ×3 (08:22→22:21)
[2021-11-26] MEDS: GABAPENTIN 400MG CAP PO SCH ×3 (08:22→22:20)
[2021-11-26] MEDS: ENOXAPARIN 40MG/0.4ML SYRINGE (J1650 PER 10MG) SC SCH (08:23)
[2021-11-26] MEDS: METHADONE 10 MG TAB (S0109) PO SCH (08:23)
[2021-11-26 14:00] VITALS: BP 124/71
[2021-11-26 20:31] VITALS: BP 100/68
[2021-11-26 22:21] VITALS: BP 108/74
[2021-11-27] MEDS: PERCOCET 5MG/325MG TAB PO PRN ×5 (02:21→21:57)
[2021-11-27 06:33] VITALS: BP 112/77
[2021-11-27] MEDS ORDERED: fentaNYL 100 MCG/2 ML INJECTION IV PRN (07:01)
[2021-11-27] MEDS ORDERED: MIDAZOLAM INJ 2MG/2ML VIAL (J2250 PER 1MG) IV PRN (07:01)
[2021-11-27 08:38] LABS: CREATININE FOR GFR 1.07 MG/DL (0.55-1.30); GLOMERULAR FILTRATION RATE 58.5 (>58); POTASSIUM SERUM 4.5 MEQ/L (3.5-5.1)
[2021-11-27] MEDS: ENOXAPARIN 40MG/0.4ML SYRINGE (J1650 PER 10MG) SC SCH (09:00)
[2021-11-27] MEDS: METHADONE 10 MG TAB (S0109) PO SCH (09:02)
[2021-11-27] MEDS: DOCUSATE SODIUM 100MG CAPSULE PO SCH ×2 (09:02→22:44)
[2021-11-27] MEDS: GABAPENTIN 400MG CAP PO SCH ×3 (09:02→22:44)
[2021-11-27] MEDS: METHYLPHENIDATE 5 MG TAB PO SCH (09:02)
[2021-11-27 14:00] VITALS: BP 110/77
[2021-11-27] MEDS ORDERED: SUGAMMADEX SODIUM 500 MG/5 ML VIAL (BRIDION) As Ordered ONE ×2 (16:18→20:22)
[2021-11-27] MEDS ORDERED: fentaNYL 100 MCG/2 ML INJECTION As Ordered ONE (16:18)
[2021-11-27] MEDS ORDERED: ONDANSETRON 4MG/2ML VIAL As Ordered ONE (16:18)
[2021-11-27] MEDS ORDERED: dexameTHASONE 4 MG/ML 1ML VIAL (J1100 PER 1MG) As Ordered ONE (16:18)
[2021-11-27] MEDS ORDERED: ROCURONIUM BROMIDE 50 MG/5 ML VIAL As Ordered ONE (16:18)
[2021-11-27] MEDS ORDERED: propofoL 200 MG/20 ML VIAL As Ordered ONE (16:18)
[2021-11-27] MEDS ORDERED: MIDAZOLAM INJ 2MG/2ML VIAL (J2250 PER 1MG) As Ordered ONE (16:18)
[2021-11-27] MEDS ORDERED: LIDOCAINE 2% 100MG/5ML SDV (FOR ANES.) As Ordered ONE (16:18)
[2021-11-27] MEDS ORDERED: METOCLOPRAMIDE INJ 10MG/2ML VIAL (J2765 PER 1) As Ordered ONE (16:18)
[2021-11-27] MEDS ORDERED: KETOROLAC 60MG 2ML VIAL As Ordered ONE (16:18)
[2021-11-27] MEDS ORDERED: ceFAZolin 2 GM/D5W 50 ML IV BAG (J0690 PER 500MG) As Ordered ONE (17:04)
[2021-11-27] MEDS ORDERED: dexameTHASONE 10MG/1ML VIAL PRES.FREE (J1100 PER 1MG) XX ONE (17:05)
[2021-11-27] MEDS ORDERED: EPINEPHrine INJ 1 MG/ML 1ML AMP XX ONE (17:05)
[2021-11-27] MEDS ORDERED: ROPIvacaine 0.5% 30ML INJECTION (J2795 PER 1MG) XX ONE (17:05)
[2021-11-27] MEDS ORDERED: PERC5TAB12 PO (17:10)
[2021-11-27] MEDS ORDERED: TRANEXAMIC ACID 100 MG/ML 10ML VIAL As Ordered ONE ×3 (18:02→20:25)
[2021-11-27] MEDS ORDERED: ACETAMINOPHEN 1000MG 100ML IV BTL (OFIRMEV) (J0131 PER 10MG) As Ordered ONE (18:55)
[2021-11-27] MEDS ORDERED: ONDANSETRON 4MG/2ML VIAL IV PRN (21:45)
[2021-11-27] MEDS: fentaNYL 100 MCG/2 ML INJECTION IV PRN ×2 (21:50→21:57)
[2021-11-27] MEDS: LR 1,000 ML IV SCH (22:34)
[2021-11-27 22:50] VITALS: BP 150/80
[2021-11-27 23:50] VITALS: BP 128/83
[2021-11-28 00:50] VITALS: BP 124/82
[2021-11-28 01:53] VITALS: BP 110/77
[2021-11-28] MEDS: PERCOCET 5MG/325MG TAB PO PRN ×2 (01:58→06:27)
[2021-11-28] MEDS: ceFAZolin SOD 1 GM in D5W MINI-BAG PLUS 50 ML IV SCH ×2 (01:58→09:00)
[2021-11-28] MEDS: LR 1,000 ML IV SCH (05:28)
[2021-11-28] MEDS: METHADONE 10 MG TAB (S0109) PO SCH (08:48)
[2021-11-28] MEDS: GABAPENTIN 400MG CAP PO SCH (08:48)
[2021-11-28] MEDS: METHYLPHENIDATE 5 MG TAB PO SCH (08:49)
[2021-11-28] MEDS: ENOXAPARIN 40MG/0.4ML SYRINGE (J1650 PER 10MG) SC SCH (08:49)
[2021-11-28] MEDS: DOCUSATE SODIUM 100MG CAPSULE PO SCH (09:00)
== END 2021-11-28 10:40 | disposition home or self-care (01) | DRG 313 ==
LOC: M ED 12:06 → M ED INP 16:14 → ENRESERV 16:32 → M MS5PR 18:15
PROVIDERS: ADMIT Family Medicine; ATTEND Internal Medicine
PROC: 0QSKXZZ Reposition Left Fibula, External Approach (ICD-10-PCS; 2021-11-18)
PROC: 0QSHXZZ Reposition Left Tibia, External Approach (ICD-10-PCS; 2021-11-18)
PROC: 0QSH04Z Reposition Left Tibia with Internal Fixation Device, Open Approach (ICD-10-PCS; 2021-11-27)
PROC: BQ1 Imaging, Non-Axial Lower Bones, Fluoroscopy (ICD-10-PCS; 2021-11-27)
PROC: 0QSK04Z Reposition Left Fibula with Internal Fixation Device, Open Approach (ICD-10-PCS; principal; 2021-11-27 16:00)
DX: S82.852A Displaced trimalleolar fracture of left lower leg, initial encounter for closed fracture (principal); J18.9 Pneumonia, unspecified organism; W00.0XXA Fall on same level due to ice and snow, initial encounter; Y92.009 Unspecified place in unspecified non-institutional (private) residence as the place of occurrence of the external cause; F11.11 Opioid abuse, in remission; F41.9 Anxiety disorder, unspecified; F32.A Depression, unspecified; Z87.891 Personal history of nicotine dependence; Z20.822 Contact with and (suspected) exposure to COVID-19; Z79.899 Other long term (current) drug therapy; Z88.2 Allergy status to sulfonamides; Z79.891 Long term (current) use of opiate analgesic

== ENCOUNTER → 2021-12-04 | Outpatient (CLI) | payer OTHER ==
[~2021-12-04] MED LIST changes: +AMIT75TA PO; +GABA-283 PO; +METH10CO3 PO; +METH20TA29 PO; +PERC5TAB12 PO
== END ==
LOC: M SOG 10:13
PROVIDERS: ATTEND Orthopaedic Surgery Hand Surgery
DX: Z48.89 Encounter for other specified surgical aftercare (principal)

== ENCOUNTER → 2021-12-10 | Outpatient (CLI) | payer OTHER ==
[2021-12-10 10:29] LABS: HEMATOCRIT 45.3 % (36.0-47.0); HEMOGLOBIN 14.5 g/dl (12.0-15.5); MEAN CORPUSCULAR VOLUME 90.6 fl (80.0-96.0); PLATELET COUNT, AUTOMATED 398 10^3/uL (150-450); WHITE BLOOD COUNT 9.7 10^3/uL (4.0-10.0)
[2021-12-10 11:41] LABS: GC DNA AMPLIFICATION NEGATIVE (NEGATIVE)
[2021-12-10 13:02] LABS: ALBUMIN 4.2 GM/DL (3.2-5.2); ALT/SGPT 27 U/L (12-78); BILIRUBIN,TOTAL 0.5 MG/DL (0.2-1.0); BLOOD UREA NITROGEN 14 MG/DL (7-18); CALCIUM LEVEL 10.1 MG/DL (8.5-10.1); CARBON DIOXIDE LEVEL 31 MEQ/L (21-32); CHLORIDE LEVEL 102 MEQ/L (98-107); CREATININE FOR GFR 1.19 MG/DL (0.55-1.30); GLOMERULAR FILTRATION RATE 51.8 (>58); GLUCOSE, FASTING 96 MG/DL (70-100); POTASSIUM SERUM 4.1 MEQ/L (3.5-5.1); SODIUM LEVEL 139 MEQ/L (136-145); TOTAL PROTEIN 7.6 GM/DL (6.4-8.2)
[2021-12-10 13:10] LABS: HCG, SERUM QUALITATIVE NEGATIVE (NEGATIVE)
[2021-12-10 13:19] LABS: HEPATITIS B SURFACE ANTIGEN NEGATIVE (NEGATIVE)
[2021-12-10 13:48] LABS: HIV 1&2 SCREEN CENTAUR NEGATIVE (NEGATIVE)
[2021-12-10 13:50] LABS: HEPATITIS C VIRUS ABY INDEX > 11.0 INDEX (<0.8)
== END ==
LOC: M EKG 09:14
PROVIDERS: ATTEND Family Medicine
DX: F11.21 Opioid dependence, in remission (principal)

== ENCOUNTER 2022-01-17 08:00 | Outpatient (RCR) | payer OTHER | END 2022-01-19 | LOC: M PT 08:00 | PROVIDERS: ATTEND Orthopaedic Surgery Hand Surgery | DX: S82.842D Displaced bimalleolar fracture of left lower leg, subsequent encounter for closed fracture with routine healing (principal) ==

== ENCOUNTER 2022-01-31 08:00 | Outpatient (RCR) | payer OTHER ==
[~2022-01-31 08:00] MED LIST changes: +ALBU2.5V10 INH; -ALBU83IN INH
== END 2022-02-19 ==
LOC: M PT 08:00
PROVIDERS: ATTEND Orthopaedic Surgery Hand Surgery
DX: S82.842D Displaced bimalleolar fracture of left lower leg, subsequent encounter for closed fracture with routine healing (principal); W18.30XD Fall on same level, unspecified, subsequent encounter

== ENCOUNTER → 2022-02-07 | Outpatient (CLI) | payer OTHER ==
[~2022-02-07] MED LIST changes: -ALBU2.5V10 INH; +ALBU83IN INH
== END ==
LOC: M SOG 08:02
PROVIDERS: ATTEND Physician Assistant
DX: S82.842D Displaced bimalleolar fracture of left lower leg, subsequent encounter for closed fracture with routine healing (principal); X58.XXXD Exposure to other specified factors, subsequent encounter; Y92.89 Other specified places as the place of occurrence of the external cause

== ENCOUNTER → 2022-03-11 | Outpatient (CLI) | payer OTHER ==
[~2022-03-11] MED LIST changes: +ALBU2.5V10 INH; -ALBU83IN INH
== END ==
LOC: M SOG 12:12
PROVIDERS: ATTEND Orthopaedic Surgery Hand Surgery
DX: S82.842D Displaced bimalleolar fracture of left lower leg, subsequent encounter for closed fracture with routine healing (principal); X58.XXXD Exposure to other specified factors, subsequent encounter; Y92.89 Other specified places as the place of occurrence of the external cause

== ENCOUNTER → 2022-08-20 | Outpatient (REF) | payer OTHER ==
[~2022-08-20] MED LIST changes: +LEVO1TAB39; -LEVO500T4
[2022-08-20 18:21] LABS: CHLORIDE LEVEL 101 MMOL/L (98-107); POTASSIUM SERUM 4.4 MMOL/L (3.5-5.1); SODIUM LEVEL 141 MMOL/L (136-145)
[2022-08-20 18:22] LABS: ALBUMIN 3.8 G/DL (3.2-5.2); CARBON DIOXIDE LEVEL 30 MMOL/L (20-31)
[2022-08-20 18:23] LABS: THYROID STIMULATING HORMONE 5.478 uIU/ML (0.55-4.78)
[2022-08-20 18:27] LABS: BLOOD UREA NITROGEN 16 MG/DL (9-23); CALCIUM LEVEL 9.8 MG/DL (8.5-10.1); GLUCOSE, FASTING 88 MG/DL (60-100)
[2022-08-20 18:28] LABS: ALKALINE PHOSPHATASE 236 U/L (46-116)
[2022-08-20 18:29] LABS: ALT/SGPT 272 U/L (7.0-40); AST/SGOT 110 U/L (<34); BILIRUBIN,TOTAL 0.5 MG/DL (0.3-1.2); TOTAL PROTEIN 6.9 G/DL (5.7-8.2)
[2022-08-20 18:30] LABS: CREATININE FOR GFR 0.82 MG/DL (0.55-1.30); GLOMERULAR FILTRATION RATE > 60.0 (>58)
== END ==
LOC: M LAB REF 16:41
PROVIDERS: ATTEND Family Medicine Addiction Medicine
DX: E03.9 Hypothyroidism, unspecified (principal)

== ENCOUNTER → 2022-11-20 | Outpatient (CLI) | payer OTHER ==
[2022-11-20 12:06] LABS: HEMATOCRIT 42.8 % (36.0-47.0); HEMOGLOBIN 13.3 g/dl (12.0-15.5); MEAN CORPUSCULAR HEMOGLOBIN 27.9 pg (27.0-33.0); MEAN CORPUSCULAR HGB CONC 31.1 g/dl (32.0-36.5); MEAN CORPUSCULAR VOLUME 89.9 fl (80.0-96.0); PLATELET COUNT, AUTOMATED 302 10^3/uL (150-450); RED BLOOD COUNT 4.76 10^6/uL (4.00-5.40); WHITE BLOOD COUNT 7.8 10^3/uL (4.0-10.0)
[2022-11-20 12:44] LABS: HEPATITIS B SURFACE ANTIGEN NEGATIVE (NEGATIVE)
[2022-11-20 12:57] LABS: HIV 1&2 SCREEN CENTAUR NEGATIVE (NEGATIVE)
[2022-11-20 12:58] LABS: HCG, SERUM QUALITATIVE NEGATIVE (NEGATIVE)
[2022-11-20 13:53] LABS: GC DNA AMPLIFICATION NEGATIVE (NEGATIVE)
[2022-11-20 14:02] LABS: HEPATITIS C VIRUS ABY INDEX > 11.0 INDEX (<0.8)
== END ==
LOC: M LAB 11:19
PROVIDERS: ATTEND Family Medicine
DX: F11.20 Opioid dependence, uncomplicated (principal)